=== PATIENT | female | born 1945 ===

== ENCOUNTER 2020-07-22 16:01 | Emergency (ER) | payer MEDICARE ==
[2020-07-22 16:13] VITALS: TEMP 100.3
[2020-07-22] MEDS ORDERED: IBUPROFEN 600 MG TAB PO STA (16:32)
--- NOTE | 2020-07-22 16:47 | ED ---
General Adult HPI - General Source: patient, family, RN notes reviewed, old records reviewed Mode of arrival: ambulatory Limitations: language barrier <Amrik Abraham - Last Filed: 07/22/20 22:50> <Shanna Chapa - Last Filed: 07/24/20 07:46> - General Chief complaint: Weakness Stated complaint: weakness Time Seen by Provider: 07/22/20 16:13 - History of Present Illness Initial comments: 75-year-old female patient to ED for generalized weakness and fever with a mild cough for the last 3 days. Denies any areas of pain. Denies any shortness of breath. Denies any other acute complaints. Systemic: Pt denies fatigue, rash. Pt denies weakness, night sweats, weight loss. Neuro: Pt denies headache, visual disturbances, syncope or pre-syncope. HEENT: Pt denies ocular discharge or irritation, otalgia, rhinorrhea, pharyngitis or notable lymphadenopathy. Cardiopulmonary: Pt denies chest pain, SOB, heart palpitations, dyspnea on exertion. Abdominal/GI: Pt denies abdominal pain, n/v/d. : Denies new onset urinary or bowel incontinence. MSK: Pt denies myalgia, loss of strength or function in extremities. Neuro: Pt denies new onset weakness, paresthesias. (Amrik Abraham) - Related Data Previous Rx's Medication Instructions Recorded Levofloxacin [Levaquin] 750 mg PO DAILY 7 Days tab 07/22/20 Allergies Allergy/AdvReac Type Severity Reaction Status Date / Time No Known Allergies Allergy Verified 07/22/20 16:08 Review of Systems ROS Other: All systems not noted in ROS Statement are negative. <Amrik Abraham - Last Filed: 07/22/20 22:50> ROS Other: All systems not noted in ROS Statement are negative. <Shanna Chapa - Last Filed: 07/24/20 07:46> ROS Statement: Those systems with pertinent positive or pertinent negative responses have been documented in the HPI. Past Medical History Past Medical History: Diabetes Mellitus History of Any Multi-Drug Resistant Organisms: None Reported Past Surgical History: No Surgical Hx Reported Past Psychological History: No Psychological Hx Reported Smoking Status: Never smoker Past Alcohol Use History: None Reported Past Drug Use History: None Reported <Amrik Abraham - Last Filed: 07/22/20 22:50> General Exam Limitations: language barrier <Amrik Abraham - Last Filed: 07/22/20 22:50> - General Exam Comments Initial Comments: Constitutional: NAD, AOX3, Pt has pleasant affect. HEENT: NC/AT, trachea midline, neck supple, no lymphadenopathy. External ears appear normal, without discharge. Mucous membranes moist. Eyes PERRLA, EOM intact. There is no scleral icterus. No pallor noted. Cardiopulmonary: RRR, no murmurs, rubs or gallops, no JVD noted. Lungs CTAB in anterior and posterior [place]. No peripheral edema. Abdominal exam: Abdomen soft and non-distended. Abdomen non-tender to palpation in all 4 quadrants. Bowel sounds active in LLQ. No hepatosplenomegaly. No ecchym osis Neuro: CN II-XII intact. No nuchal rigidity. No raccon eyes, no duval sign, no hemotympanum. No cervical spinal tenderness. MSK: No posterior calf tenderness bilaterally, homans sign negative bilaterally. Posterior tibialis and radial pulse +2 bilaterally. Sensation intact in upper and lower extremities. Full active ROM in upper and lower extremities, 5/5 stregnth. (Amrik Abraham) Course Vital Signs 07/22/20 07/22/20 07/22/20 16:08 16:40 17:00 Temperature 100.3 F H Pulse Rate 124 H 108 H 101 H Respiratory 20 20 20 Rate Blood Pressure 122/74 107/66 107/66 O2 Sat by Pulse 97 95 95 Oximetry 07/22/20 07/22/20 18:00 19:00 Temperature Pulse Rate 98 96 Respiratory 18 18 Rate Blood Pressure 109/72 119/70 O2 Sat by Pulse 96 95 Oximetry Medical Decision Making - Lab Data Result diagrams: 07/22/20 16:29 07/22/20 16:29 - EKG Data -: EKG Interpreted by Me (and Dr. Chapa ) <Amrik Abraham - Last Filed: 07/22/20 22:50> - Lab Data Result diagrams: 07/22/20 16:29 07/22/20 16:29 <Shanna Chapa - Last Filed: 07/24/20 07:46> - Medical Decision Making 75 year old female patient to ED for weakness, fever, cough. Pt VSS do display mild fever. Laboratory investigations reveal mild UTI. x-ray reveals possible pulmonary fibrosis and a coarse infiltrate. Offered admission, she reports she is feeling fine and wants to go home. Son did provide translation. She'll be placed on Levaquin for 1 week and have close patient follow-up with primary care provider and return precautions. Case discussed with Dr. Chapa. (Amrik Abraham) I was available for consultation in the emergency department. The history and physical exam were done by the midlevel provider. I was consulted for this patients care. I reviewed the case with the midlevel provider and based on their presentation of the patient, I agree with the assessment, medical decision making and plan of care as documented. Recommended admission however patient refused. She is alert, lucid and capable of making her own decisions. Chart was dictated using [employer] dictation software. Attempts were made to correct any dictation errors however some typographical errors may persist. Patient seen and evaluated during state of emergency due to Covid-19. (Shanna Chapa) - Lab Data Lab Results 07/22/20 07/22/20 07/22/20 Range/Units 16:29 16:29 16:29 WBC 7.1 (3.8-10.6) k/uL RBC 4.40 (3.80-5.40) m/uL Hgb 13.5 (11.4-16.0) gm/dL Hct 40.3 (34.0-46.0) % MCV 91.7 (80.0-100.0) fL MCH 30.7 (25.0-35.0) pg MCHC 33.5 (31.0-37.0) g/dL RDW 12.4 (11.5-15.5) % Plt Count 243 (150-450) k/uL MPV 7.7 Neutrophils % 75 % Lymphocytes % 18 % Monocytes % 5 % Eosinophils % 1 % Basophils % 1 % Neutrophils # 5.3 (1.3-7.7) k/uL Lymphocytes # 1.3 (1.0-4.8) k/uL Monocytes # 0.4 (0-1.0) k/uL Eosinophils # 0.0 (0-0.7) k/uL Basophils # 0.0 (0-0.2) k/uL Sodium 133 L (137-145) mmol/L Potassium 3.7 (3.5-5.1) mmol/L Chloride 99 (98-107) mmol/L Carbon Dioxide 23 (22-30) mmol/L Anion Gap 11 mmol/L BUN 20 H (7-17) mg/dL Creatinine 1.02 (0.52-1.04) mg/dL Est GFR (CKD-EPI)AfAm 63 (>60 ml/min/1.73 sqM) Est GFR (CKD-EPI)NonAf 55 (>60 ml/min/1.73 sqM) Glucose 66 L (74-99) mg/dL POC Glucose (mg/dL) (75-99) mg/dL POC Glu Network Support Technician ID Plasma Lactic Acid Arthur (0.7-2.0) mmol/L Calcium 9.2 (8.4-10.2) mg/dL Total Bilirubin 0.5 (0.2-1.3) mg/dL AST 29 (14-36) U/L ALT 16 (4-34) U/L Alkaline Phosphatase 79 (38-126) U/L Troponin I (0.000-0.034) ng/mL Total Protein 7.9 (6.3-8.2) g/dL Albumin 4.3 (3.5-5.0) g/dL Urine Color Yellow Urine Appearance Cloudy H (Clear) Urine pH 5.5 (5.0-8.0) Ur Specific [place] 1.039 H (1.001-1.035) Urine Protein 2+ H (Negative) Urine Glucose (UA) Negative (Negative) Urine Ketones Negative (Negative) Urine Blood Negative (Negative) Urine Nitrite Negative (Negative) Urine Bilirubin Negative (Negative) Urine Urobilinogen 2.0 (<2.0) mg/dL Ur Leukocyte Esterase Large H (Negative) Urine RBC 7 H (0-5) /hpf Urine WBC 29 H (0-5) /hpf Ur Squamous Epith Cells 6 H (0-4) /hpf Hyaline Casts 13 H (0-2) /lpf Granular Casts 1 (0) /lpf Urine Mucus Few H (None) /hpf Influenza Type A RNA (Not Detectd) Influenza Type B (PCR) (Not Detectd) 07/22/20 07/22/20 07/22/20 Range/Units 16:29 16:29 16:29 WBC (3.8-10.6) k/uL RBC (3.80-5.40) m/uL Hgb (11.4-16.0) gm/dL Hct (34.0-46.0) % MCV (80.0-100.0) fL MCH (25.0-35.0) pg MCHC (31.0-37.0) g/dL RDW (11.5-15.5) % Plt Count (150-450) k/uL MPV Neutrophils % % Lymphocytes % % Monocytes % % Eosinophils % % Basophils % % Neutrophils # (1.3-7.7) k/uL Lymphocytes # (1.0-4.8) k/uL Monocytes # (0-1.0) k/uL Eosinophils # (0-0.7) k/uL Basophils # (0-0.2) k/uL Sodium (137-145) mmol/L Potassium (3.5-5.1) mmol/L Chloride (98-107) mmol/L Carbon Dioxide (22-30) mmol/L Anion Gap mmol/L BUN (7-17) mg/dL Creatinine (0.52-1.04) mg/dL Est GFR (CKD-EPI)AfAm (>60 ml/min/1.73 sqM) Est GFR (CKD-EPI)NonAf (>60 ml/min/1.73 sqM) Glucose (74-99) mg/dL POC Glucose (mg/dL) (75-99) mg/dL POC Glu Network Support Technician ID Plasma Lactic Acid [place] 1.2 (0.7-2.0) mmol/L Calcium (8.4-10.2) mg/dL Total Bilirubin (0.2-1.3) mg/dL AST (14-36) U/L ALT (4-34) U/L Alkaline Phosphatase (38-126) U/L Troponin I <0.012 (0.000-0.034) ng/mL Total Protein (6.3-8.2) g/dL Albumin (3.5-5.0) g/dL Urine Color Urine Appearance (Clear) Urine pH (5.0-8.0) Ur Specific [place] (1.001-1.035) Urine Protein (Negative) Urine Glucose (UA) (Negative) Urine Ketones (Negative) Urine Blood (Negative) Urine Nitrite (Negative) Urine Bilirubin (Negative) Urine Urobilinogen (<2.0) mg/dL Ur Leukocyte Esterase (Negative) Urine RBC (0-5) /hpf Urine WBC (0-5) /hpf Ur Squamous Epith Cells (0-4) /hpf Hyaline Casts (0-2) /lpf Granular Casts (0) /lpf Urine Mucus (None) /hpf Influenza Type A RNA Not Detected (Not Detectd) Influenza Type B (PCR) Not Detected (Not Detectd) 07/22/20 Range/Units 17:55 WBC (3.8-10.6) k/uL RBC (3.80-5.40) m/uL Hgb (11.4-16.0) gm/dL Hct (34.0-46.0) % MCV (80.0-100.0) fL MCH (25.0-35.0) pg MCHC (31.0-37.0) g/dL RDW (11.5-15.5) % Plt Count (150-450) k/uL MPV Neutrophils % % Lymphocytes % % Monocytes % % Eosinophils % % Basophils % % Neutrophils # (1.3-7.7) k/uL Lymphocytes # (1.0-4.8) k/uL Monocytes # (0-1.0) k/uL Eosinophils # (0-0.7) k/uL Basophils # (0-0.2) k/uL Sodium (137-145) mmol/L Potassium (3.5-5.1) mmol/L Chloride (98-107) mmol/L Carbon Dioxide (22-30) mmol/L Anion Gap mmol/L BUN (7-17) mg/dL Creatinine (0.52-1.04) mg/dL Est GFR (CKD-EPI)AfAm (>60 ml/min/1.73 sqM) Est GFR (CKD-EPI)NonAf (>60 ml/min/1.73 sqM) Glucose (74-99) mg/dL POC Glucose (mg/dL) 84 (75-99) mg/dL POC Glu Network Support Technician ID Mariajose Reyes Plasma Lactic Acid Arthur (0.7-2.0) mmol/L Calcium (8.4-10.2) mg/dL Total Bilirubin (0.2-1.3) mg/dL AST (14-36) U/L ALT (4-34) U/L Alkaline Phosphatase (38-126) U/L Troponin I (0.000-0.034) ng/mL Total Protein (6.3-8.2) g/dL Albumin (3.5-5.0) g/dL Urine Color Urine Appearance (Clear) Urine pH (5.0-8.0) Ur Specific [place] (1.001-1.035) Urine Protein (Negative) Urine Glucose (UA) (Negative) Urine Ketones (Negative) Urine Blood (Negative) Urine Nitrite (Negative) Urine Bilirubin (Negative) Urine Urobilinogen (<2.0) mg/dL Ur Leukocyte Esterase (Negative) Urine RBC (0-5) /hpf Urine WBC (0-5) /hpf Ur Squamous Epith Cells (0-4) /hpf Hyaline Casts (0-2) /lpf Granular Casts (0) /lpf Urine Mucus (None) /hpf Influenza Type A RNA (Not Detectd) Influenza Type B (PCR) (Not Detectd) - EKG Data EKG Comments: ventricular rate 113, RI interval 144, QRS 70, QT/QTC 322/441. Sinus tachycardia, possible inferior infarct age undetermined. No concern for acute ischemia at this time. (Amrik Abraham) Disposition Is patient prescribed a controlled substance at d/c from ED?: No <Amrik Abraham - Last Filed: 07/22/20 22:50> <Shanna Chapa - Last Filed: 07/24/20 07:46> Clinical Impression: UTI (urinary tract infection), Pneumonia Disposition: HOME SELF-CARE Condition: Stable Instructions (If sedation given, give patient instructions): Urinary Tract Infection in Women (ED), Pneumonia (ED) Additional Instructions: Follow up with PCP tomorrow. Take antibiotics as directed. Return to ED with any worsening symptoms. Prescriptions: Levofloxacin [Levaquin] 750 mg PO DAILY 7 Days tab Referrals: Tristan Luis MD [REFERRING] - 1-2 days
[2020-07-22 16:55] LABS: Basophils % (A) 1 %; Eosinophils % (A) 1 %; HCT 40.3 % (34.0-46.0); HGB 13.5 gm/dL (11.4-16.0); Lymphocytes # (A) 1.3 k/uL (1.0-4.8); Lymphocytes % (A) 18 %; MCH 30.7 pg (25.0-35.0); MCHC 33.5 g/dL (31.0-37.0); MCV 91.7 fL (80.0-100.0); Mean Platelet Volume 7.7; Monocytes # (A) 0.4 k/uL (0-1.0); Monocytes % (A) 5 %; Neutrophils # (A) 5.3 k/uL (1.3-7.7); Neutrophils % (A) 75 %; Platelet Count 243 k/uL (150-450); RDW 12.4 % (11.5-15.5); WBC 7.1 k/uL (3.8-10.6)
[2020-07-22] MEDS ORDERED: SODIUM CHLORIDE 0.9% 500 ML 500 ML IV ONE (16:57)
[2020-07-22 17:04] LABS: Albumin 4.3 g/dL (3.5-5.0); Calcium 9.2 mg/dL (8.4-10.2); Potassium 3.7 mmol/L (3.5-5.1); Total Bilirubin 0.5 mg/dL (0.2-1.3); Total Protein 7.9 g/dL (6.3-8.2)
--- NOTE | 2020-07-22 17:18 | XR ---
EXAMINATION TYPE: XR chest 2V DATE OF EXAM: 07/22/2020 COMPARISON: NONE HISTORY: Weakness and cough TECHNIQUE: 2 views FINDINGS: There is some coarse infiltrate in the periphery of the left lung. There is probably some c alcified pleural plaque on the left lateral chest wall. Thoracic aorta is atheromatous. There is no h eart failure. IMPRESSION: Coarse lateral left side pulmonary infiltrate and pleural plaque formation. No heart fail ure seen. There is probably pulmonary interstitial fibrosis.
[2020-07-22 17:56] LABS: Glucose,Whole Blood 84 mg/dL (75-99)
[2020-07-22 18:21] VITALS: RESP 18
[2020-07-22 18:21] LABS: Appearance,Urine Cloudy (Clear); Bilirubin,Urine Negative (Negative); Blood,Urine Negative (Negative); Color,Urine Yellow; Glucose,Urine (UA) Negative (Negative); Granular Casts,Urine 1 /lpf (0); Hyaline Casts,Urine 13 /lpf (0-2); Ketones,Urine Negative (Negative); Leukocyte Esterase,Urine Large (Negative); Mucus,Urine Few /hpf; Nitrite,Urine Negative (Negative); PH, Urine 5.5 (5.0-8.0); Protein,Urine 2+ (Negative); RBC,Urine 7 /hpf (0-5); Specific Gravity,Urine 1.039 (1.001-1.035); Squamous Epithelial Cell,Urine 6 /hpf (0-4); WBC,Urine 29 /hpf (0-5)
[2020-07-22] MEDS ORDERED: cefTRIAXone IN SWFI 1,000 MG/10 ML SYRINGE IVP STA (18:44)
[2020-07-22 19:10] VITALS: BP 119/70; PULSE 96
[2020-07-22] MEDS ORDERED: AZITHROMYCIN 500 MG TAB PO STA (19:25)
[2020-07-22] MEDS ORDERED: LEVOFLOXACIN 750 MG TAB PO STA (19:36)
== END 2020-07-22 19:50 | disposition home or self-care (01) ==
LOC: EC 16:01
DX: U07.1 COVID-19 (principal); J12.89 Other viral pneumonia; N39.0 Urinary tract infection, site not specified
CPT/HCPCS: 99285; 96374; 96361 ×2; 36415; 93005; 80053; 83605; 84484; 85025; 81001; 87040; 87086; 87502; 71046; U0003; J0696

== ENCOUNTER 2020-07-24 14:35 | Emergency (ER) | payer MEDICARE ==
[2020-07-24] MEDS ORDERED: SODIUM CHLORIDE 0.9% 1,000 ML IV STA (15:11)
[2020-07-24] MEDS ORDERED: ONDANSETRON 4 MG/2 ML VIAL IVP STA (15:11)
[2020-07-24] MEDS ORDERED: ACETAMINOPHEN TAB 500 MG TAB PO STA (15:35)
--- NOTE | 2020-07-24 15:38 | ED ---
General Adult HPI - General Chief complaint: Nausea/Vomiting/Diarrhea Stated complaint: Vomiting,Covid Exposure Time Seen by Provider: 07/24/20 14:53 Source: patient Mode of arrival: ambulatory Limitations: language barrier - History of Present Illness Initial comments: Patient is a 75-year-old female presenting to the emergency Department with complaints of nausea and vomiting that started yesterday. Patient speaks very little Haitian, her son is here helping translate. Patient was in the ER 2 days ago and was diagnosed with a UTI as well as pneumonia. Patient also states her just tested positive for Covid. She also did have a Covid test however this is still pending. Prescribed Levaquin which she has been taking, she did take a dose today. Patient states yesterday she started having nausea and had a few episodes of vomiting and then again today. She denies any abdominal pain, no chest pain, no shortness of breath. She has been having a little bit of a fever. She has been able to eat and drink until today, because of the nausea. She denies any diarrhea. She denies having headache, no dizziness. She has no further complaints at this time. Upon arrival to the ER, she was febrile 100, rest of vitals are normal. - Related Data Home Medications Medication Instructions Recorded Confirmed Lisinopril-Hctz 10-12.5 mg 1 tab PO DAILY 07/24/20 07/24/20 [Zestoretic 10-12.5] Lovastatin [Mevacor] 20 mg PO DAILY 07/24/20 07/24/20 glyBURIDE/METFORMIN HCL 1 tab PO AC-BID 07/24/20 07/24/20 [Glucovance 5-500 mg] Previous Rx's Medication Instructions Recorded Levofloxacin [Levaquin] 750 mg PO DAILY 7 Days tab 07/22/20 Ondansetron Odt [Zofran Odt] 4 mg PO Q8HR PRN #10 tab 07/24/20 Allergies Allergy/AdvReac Type Severity Reaction Status Date / Time No Known Allergies Allergy Verified 07/24/20 15:52 Review of Systems ROS Statement: Those systems with pertinent positive or pertinent negative responses have been documented in the HPI. ROS Other: All systems not noted in ROS Statement are negative. Past Medical History Past Medical History: Diabetes Mellitus History of Any Multi-Drug Resistant Organisms: None Reported Past Surgical History: No Surgical Hx Reported Past Psychological History: No Psychological Hx Reported Smoking Status: Never smoker Past Alcohol Use History: None Reported Past Drug Use History: None Reported General Exam - General Exam Comments Initial Comments: GENERAL: Patient is well-developed and well-nourished. Patient is nontoxic and in no acute distress. HEAD: Atraumatic, normocephalic. EYES: Pupils equal round and reactive to light, extraocular movements intact, sclera anicteric, conjunctiva are normal. Eyelids were unremarkable. ENT: TMs normal, nares patent, oropharynx clear without exudates. Moist mucous membranes. NECK: Normal range of motion, supple without lymphadenopathy or JVD. LUNGS: Unlabored respirations. Breath sounds clear to auscultation bilaterally and equal. No wheezes rales or rhonchi. HEART: Regular rate and rhythm without murmurs, rubs or gallops. ABDOMEN: Soft, nontender, normoactive bowel sounds. No guarding, no rebound. No masses appreciated. : Deferred MUSCULOSKELETAL: Normal extremities with adequate strength and normal range of motion, no pitting or edema. No clubbing or cyanosis. NEUROLOGICAL: Patient is alert and oriented x 3. Motor and sensory are also intact. Cranial nerves II through XII grossly intact. Symmetrical smile. Normal speech, normal gait. PSYCH: Normal mood, normal affect. SKIN: Warm, Dry, normal turgor, no rashes or lesions noted. Limitations: language barrier Course Vital Signs 07/24/20 07/24/20 14:38 16:43 Temperature 100 F H 98.0 F Pulse Rate 95 86 Respiratory 18 16 Rate Blood Pressure 129/79 98/63 O2 Sat by Pulse 96 99 Oximetry Medical Decision Making - Medical Decision Making Patient is a 75-year-old female here for nausea and vomiting that started yest erday. She is currently being treated for pneumonia as well as a UTI with Levaquin. She is on day 2. Her is also COVID +, her test is still pending, but presuming she is positive. She did arrive febrile 100, rest of vitals are normal. Her exam is unremarkable, no abdominal pain, her lungs sound clear. Patient looks well, nontoxic. Laboratory shows a normal white count, sodium was a little low at 127, glucose is 52, urine does show improvement from her UTI. Given 1 L of fluids and Zofran and has been resting comfortably in the ER. She said no vomiting episodes, no nausea. Patient states she has not eaten any food today secondary to the nausea but had continued to take her diabetic medication. Patient was given crackers and juice. She reports improvement. She is stable for discharge at this time. I will send her home with Zofran and told her to continue with already prescribed Levaquin. She needs to follow-up with her PCP tomorrow to have labs rechecked. Patient and patient's son are in agreement with this plan of care. Return parameters were discussed with them and they verbalized understanding. Case discussed with Dr. Damian. - Lab Data Result diagrams: 07/24/20 15:35 07/24/20 15:35 Lab Results 07/24/20 07/24/20 07/24/20 Range/Units 15:35 15:35 16:06 WBC 6.6 (3.8-10.6) k/uL RBC 4.03 (3.80-5.40) m/uL Hgb 12.4 (11.4-16.0) gm/dL Hct 36.5 (34.0-46.0) % MCV 90.6 (80.0-100.0) fL MCH 30.8 (25.0-35.0) pg MCHC 34.0 (31.0-37.0) g/dL RDW 11.8 (11.5-15.5) % Plt Count 233 (150-450) k/uL MPV 7.2 Neutrophils % 81 % Lymphocytes % 10 % Monocytes % 6 % Eosinophils % 1 % Basophils % 2 % Neutrophils # 5.3 (1.3-7.7) k/uL Lymphocytes # 0.7 L (1.0-4.8) k/uL Monocytes # 0.4 (0-1.0) k/uL Eosinophils # 0.0 (0-0.7) k/uL Basophils # 0.1 (0-0.2) k/uL Sodium 127 L (137-145) mmol/L Potassium 3.7 (3.5-5.1) mmol/L Chloride 94 L (98-107) mmol/L Carbon Dioxide 25 (22-30) mmol/L Anion Gap 8 mmol/L BUN 13 (7-17) mg/dL Creatinine 0.60 (0.52-1.04) mg/dL Est GFR (CKD-EPI)AfAm >90 (>60 ml/min/1.73 sqM) Est GFR (CKD-EPI)NonAf >90 (>60 ml/min/1.73 sqM) Glucose 52 L (74-99) mg/dL POC Glucose (mg/dL) (75-99) mg/dL POC Glu Physicist [place] ID Calcium 8.6 (8.4-10.2) mg/dL Total Bilirubin 0.5 (0.2-1.3) mg/dL AST 35 (14-36) U/L ALT 15 (4-34) U/L Alkaline Phosphatase 62 (38-126) U/L Total Protein 7.1 (6.3-8.2) g/dL Albumin 3.8 (3.5-5.0) g/dL Urine Color Yellow Urine Appearance Clear (Clear) Urine pH 6.5 (5.0-8.0) Ur Specific [place] 1.026 (1.001-1.035) Urine Protein 2+ H (Negative) Urine Glucose (UA) Negative (Negative) Urine Ketones Negative (Negative) Urine Blood Small H (Negative) Urine Nitrite Negative (Negative) Urine Bilirubin Negative (Negative) Urine Urobilinogen <2.0 (<2.0) mg/dL Ur Leukocyte Esterase Negative (Negative) Urine RBC 1 (0-5) /hpf Urine WBC 3 (0-5) /hpf Ur Squamous Epith Cells 3 (0-4) /hpf Urine Mucus Rare H (None) /hpf 07/24/20 Range/Units 17:11 WBC (3.8-10.6) k/uL RBC (3.80-5.40) m/uL Hgb (11.4-16.0) gm/dL Hct (34.0-46.0) % MCV (80.0-100.0) fL MCH (25.0-35.0) pg MCHC (31.0-37.0) g/dL RDW (11.5-15.5) % Plt Count (150-450) k/uL MPV Neutrophils % % Lymphocytes % % Monocytes % % Eosinophils % % Basophils % % Neutrophils # (1.3-7.7) k/uL Lymphocytes # (1.0-4.8) k/uL Monocytes # (0-1.0) k/uL Eosinophils # (0-0.7) k/uL Basophils # (0-0.2) k/uL Sodium (137-145) mmol/L Potassium (3.5-5.1) mmol/L Chloride (98-107) mmol/L Carbon Dioxide (22-30) mmol/L Anion Gap mmol/L BUN (7-17) mg/dL Creatinine (0.52-1.04) mg/dL Est GFR (CKD-EPI)AfAm (>60 ml/min/1.73 sqM) Est GFR (CKD-EPI)NonAf (>60 ml/min/1.73 sqM) Glucose (74-99) mg/dL POC Glucose (mg/dL) 58 L (75-99) mg/dL POC Glu Physicist [place] ID Lucinda Jerome Calcium (8.4-10.2) mg/dL Total Bilirubin (0.2-1.3) mg/dL AST (14-36) U/L ALT (4-34) U/L Alkaline Phosphatase (38-126) U/L Total Protein (6.3-8.2) g/dL Albumin (3.5-5.0) g/dL Urine Color Urine Appearance (Clear) Urine pH (5.0-8.0) Ur Specific [place] (1.001-1.035) Urine Protein (Negative) Urine Glucose (UA) (Negative) Urine Ketones (Negative) Urine Blood (Negative) Urine Nitrite (Negative) Urine Bilirubin (Negative) Urine Urobilinogen (<2.0) mg/dL Ur Leukocyte Esterase (Negative) Urine RBC (0-5) /hpf Urine WBC (0-5) /hpf Ur Squamous Epith Cells (0-4) /hpf Urine Mucus (None) /hpf Disposition Clinical Impression: Dehydration, Nausea and vomiting Disposition: HOME SELF-CARE Condition: Stable Instructions (If sedation given, give patient instructions): Acute Nausea and Vomiting (ED) Additional Instructions: Please return to the Emergency Department if symptoms worsen or any other concerns. Lab work today shows dehydration, low blood sugar. Make sure to eat dinner after discharge. Follow-up with your PCP tomorrow to recheck blood work. Continue taking the antibiotic as prescribed. Prescriptions: Ondansetron Odt [Zofran Odt] 4 mg PO Q8HR PRN #10 tab PRN Reason: Nausea Is patient prescribed a controlled substance at d/c from ED?: No Referrals: Tristan Luis MD [Primary Care Provider] - 1-2 days
[2020-07-24 15:39] LABS: Basophils # (A) 0.1 k/uL (0-0.2); Basophils % (A) 2 %; Eosinophils % (A) 1 %; HCT 36.5 % (34.0-46.0); HGB 12.4 gm/dL (11.4-16.0); Lymphocytes # (A) 0.7 k/uL (1.0-4.8); Lymphocytes % (A) 10 %; MCH 30.8 pg (25.0-35.0); MCV 90.6 fL (80.0-100.0); Mean Platelet Volume 7.2; Monocytes # (A) 0.4 k/uL (0-1.0); Monocytes % (A) 6 %; Neutrophils # (A) 5.3 k/uL (1.3-7.7); Neutrophils % (A) 81 %; Platelet Count 233 k/uL (150-450); RBC 4.03 m/uL (3.80-5.40); RDW 11.8 % (11.5-15.5); WBC 6.6 k/uL (3.8-10.6)
[2020-07-24 15:50] LABS: ALT 15 U/L (4-34); AST 35 U/L (14-36); African American GFR (CKD) >90 (>60 ml/min/1.73 sqM); Albumin 3.8 g/dL (3.5-5.0); Alkaline Phosphatase 62 U/L (38-126); Anion Gap 8 mmol/L; Blood Urea Nitrogen 13 mg/dL (7-17); Calcium 8.6 mg/dL (8.4-10.2); Carbon Dioxide 25 mmol/L (22-30); Chloride 94 mmol/L (98-107); Glucose 52 mg/dL (74-99); Non-African American GFR(CKD) >90 (>60 ml/min/1.73 sqM); Potassium 3.7 mmol/L (3.5-5.1); Sodium 127 mmol/L (137-145); Total Bilirubin 0.5 mg/dL (0.2-1.3); Total Protein 7.1 g/dL (6.3-8.2)
[2020-07-24 16:31] LABS: Appearance,Urine Clear (Clear); Bilirubin,Urine Negative (Negative); Blood,Urine Small (Negative); Color,Urine Yellow; Glucose,Urine (UA) Negative (Negative); Ketones,Urine Negative (Negative); Leukocyte Esterase,Urine Negative (Negative); Mucus,Urine Rare /hpf; Nitrite,Urine Negative (Negative); PH, Urine 6.5 (5.0-8.0); Protein,Urine 2+ (Negative); RBC,Urine 1 /hpf (0-5); Specific Gravity,Urine 1.026 (1.001-1.035); Squamous Epithelial Cell,Urine 3 /hpf (0-4); Urobilinogen,Urine <2.0 mg/dL (<2.0); WBC,Urine 3 /hpf (0-5)
[2020-07-24 16:44] VITALS: BP 98/63; PULSE 86; RESP 16; TEMP 98
[2020-07-24 17:13] LABS: Glucose,Whole Blood 58 mg/dL (75-99)
== END 2020-07-24 17:51 | disposition home or self-care (01) ==
LOC: EC 14:35
DX: R11.2 Nausea with vomiting, unspecified (principal); E86.0 Dehydration; N39.0 Urinary tract infection, site not specified; J18.9 Pneumonia, unspecified organism; E11.9 Type 2 diabetes mellitus without complications; Z79.84 Long term (current) use of oral hypoglycemic drugs; Z79.899 Other long term (current) drug therapy
CPT/HCPCS: 36415; 80053; 85025; 81001; 99284; 96374; 96361 ×2; J2405

== ENCOUNTER 2020-07-29 12:46 | Inpatient (IN) | payer MEDICARE ==
[2020-07-29] MEDS ORDERED: ONDANSETRON 4 MG/2 ML VIAL IVP STA (13:24)
[2020-07-29] MEDS ORDERED: ACETAMINOPHEN TAB 500 MG TAB PO STA (13:24)
[2020-07-29] MEDS ORDERED: SODIUM CHLORIDE 0.9% 1,000 ML IV STA (13:24)
--- NOTE | 2020-07-29 13:52 | ED ---
Nausea/Vomiting/Diarrhea HPI - General Chief complaint: Nausea/Vomiting/Diarrhea Stated complaint: Vomiting Time Seen by Provider: 07/29/20 13:05 Source: patient Mode of arrival: ambulatory Limitations: no limitations - History of Present Illness Initial comments: Patient is a 75-year-old female presenting to the emergency department with continued nausea, vomiting and now has developed a fever. Patient tested positive for Covid one week ago. She was seen in the ER 5 days ago for nausea and vomiting, she received some fluids and felt improvement. She also completed a course of Levaquin for a mild pneumonia. Patient speaks little Bengali, son i s helping to translate. Son states that she has been feeling better through the week and has been taking the Zofran for the nausea but she ran out and started having vomiting today. They also noticed that she started having a fever today as well. She denies having a cough no shortness of breath or chest pain. She is still having intermittent diarrhea. She denies any dysuria. She did not take any Tylenol or Motrin yet today. She denies having any headache, sore throat, abdominal pain, she states it just feels nauseous and crampy. She has no further complaints at this time. Upon arrival to the ER, her temperature is 100.0, pulse is 103, rest of vitals are normal. - Related Data Home Medications Medication Instructions Recorded Confirmed Lisinopril-Hctz 10-12.5 mg 1 tab PO DAILY 07/24/20 07/24/20 [Zestoretic 10-12.5] Lovastatin [Mevacor] 20 mg PO DAILY 07/24/20 07/24/20 glyBURIDE/METFORMIN HCL 1 tab PO AC-BID 07/24/20 07/24/20 [Glucovance 5-500 mg] Previous Rx's Medication Instructions Recorded Levofloxacin [Levaquin] 750 mg PO DAILY 7 Days tab 07/22/20 Ondansetron Odt [Zofran Odt] 4 mg PO Q8HR PRN #10 tab 07/24/20 Allergies Allergy/AdvReac Type Severity Reaction Status Date / Time No Known Allergies Allergy Verified 07/29/20 13:01 Review of Systems ROS Statement: Those systems with pertinent positive or pertinent negative responses have been documented in the HPI. ROS Other: All systems not noted in ROS Statement are negative. Past Medical History Past Medical History: Diabetes Mellitus History of Any Multi-Drug Resistant Organisms: None Reported Past Surgical History: No Surgical Hx Reported Past Psychological History: No Psychological Hx Reported Smoking Status: Never smoker Past Alcohol Use History: None Reported Past Drug Use History: None Reported General Exam - General Exam Comments Initial Comments: GENERAL: Patient is well-developed and well-nourished. She appears fatigued, dry. HEAD: Atraumatic, normocephalic. EYES: Pupils equal round and reactive to light, extraocular movements intact, sclera anicteric, conjunctiva are normal. Eyelids were unremarkable. ENT: TMs normal, nares patent, oropharynx clear without exudates. Dry mucous m embranes. NECK: Normal range of motion, supple without lymphadenopathy or JVD. LUNGS: Unlabored respirations. Breath sounds clear to auscultation bilaterally and equal. No wheezes rales or rhonchi. HEART: Slighty tachycardia rate and rhythm without murmurs, rubs or gallops. ABDOMEN: Soft, nontender, normoactive bowel sounds. No guarding, no rebound. No masses appreciated. : Deferred MUSCULOSKELETAL: Normal extremities with adequate strength and normal range of motion, no pitting or edema. No clubbing or cyanosis. NEUROLOGICAL: Patient is alert and oriented x 3. Motor and sensory are also intact. Cranial nerves II through XII grossly intact. Symmetrical smile. Normal speech, normal gait. PSYCH: Normal mood, normal affect. SKIN: Warm, Dry, normal turgor, no rashes or lesions noted. Limitations: no limitations Course Vital Signs 07/29/20 07/29/20 12:58 15:01 Temperature 100.0 F H Pulse Rate 103 H 81 Respiratory 18 16 Rate Blood Pressure 124/78 131/79 O2 Sat by Pulse 97 95 Oximetry Medical Decision Making - Medical Decision Making Patient is a 75-year-old female here for nausea, vomiting, diarrhea for the past week. She did test positive for Covid one week ago. She completed a course of Levaquin. She did arrive febrile today, slightly tachycardia. She denies any shortness of breath, chest pain, cough. White count is 13.9, sodium is 128, lactic acid is elevated at 3.2 and CRP is 256, urine shows some mild WBCs, 3+ protein. Chest x-ray shows worsening bilateral infiltrates. Patient was given a liter bolus and will start on maintenance fluids. Patient will be admitted for covid pneumonia, and dehydration. Patient is in agreement with this plan of care. I will start her on Lovenox, give her a dose of Decadron as well. Case discussed with Dr. Damian. Patient accepted by Dr. Melendez. - Lab Data Result diagrams: 07/29/20 13:45 07/29/20 13:45 Lab Results 07/29/20 07/29/20 07/29/20 Range/Units 13:45 13:45 13:45 WBC 13.9 H (3.8-10.6) k/uL RBC 4.35 (3.80-5.40) m/uL Hgb 13.6 (11.4-16.0) gm/dL Hct 39.4 (34.0-46.0) % MCV 90.5 (80.0-100.0) fL MCH 31.3 (25.0-35.0) pg MCHC 34.6 (31.0-37.0) g/dL RDW 11.7 (11.5-15.5) % Plt Count 425 (150-450) k/uL MPV 7.0 Neutrophils % 92 % Lymphocytes % 4 % Monocytes % 3 % Eosinophils % 0 % Basophils % 0 % Neutrophils # 12.7 H (1.3-7.7) k/uL Lymphocytes # 0.6 L (1.0-4.8) k/uL Monocytes # 0.4 (0-1.0) k/uL Eosinophils # 0.0 (0-0.7) k/uL Basophils # 0.1 (0-0.2) k/uL Sodium 128 L (137-145) mmol/L Potassium 3.7 (3.5-5.1) mmol/L Chloride 89 L (98-107) mmol/L Carbon Dioxide 28 (22-30) mmol/L Anion Gap 11 mmol/L BUN 7 (7-17) mg/dL Creatinine 0.63 (0.52-1.04) mg/dL Est GFR (CKD-EPI)AfAm >90 (>60 ml/min/1.73 sqM) Est GFR (CKD-EPI)NonAf 89 (>60 ml/min/1.73 sqM) Glucose 120 H (74-99) mg/dL Plasma Lactic Acid Arthur 3.2 H* (0.7-2.0) mmol/L Calcium 9.2 (8.4-10.2) mg/dL Magnesium 1.8 (1.6-2.3) mg/dL Total Bilirubin 0.7 (0.2-1.3) mg/dL AST 35 (14-36) U/L ALT 18 (4-34) U/L Alkaline Phosphatase 114 (38-126) U/L C-Reactive Protein 256.0 H (<10.0) mg/L Total Protein 7.5 (6.3-8.2) g/dL Albumin 3.9 (3.5-5.0) g/dL Urine Color Urine Appearance (Clear) Urine pH (5.0-8.0) Ur Specific Dalton (1.001-1.035) Urine Protein (Negative) Urine Glucose (UA) (Negative) Urine Ketones (Negative) Urine Blood (Negative) Urine Nitrite (Negative) Urine Bilirubin (Negative) Urine Urobilinogen (<2.0) mg/dL Ur Leukocyte Esterase (Negative) Urine RBC (0-5) /hpf Urine WBC (0-5) /hpf Ur Squamous Epith Cells (0-4) /hpf Amorphous Sediment (None) /hpf Hyaline Casts (0-2) /lpf Urine Mucus (None) /hpf Influenza Type A RNA (Not Detectd) Influenza Type B (PCR) (Not Detectd) 07/29/20 07/29/20 Range/Units 13:45 13:45 WBC (3.8-10.6) k/uL RBC (3.80-5.40) m/uL Hgb (11.4-16.0) gm/dL Hct (34.0-46.0) % MCV (80.0-100.0) fL MCH (25.0-35.0) pg MCHC (31.0-37.0) g/dL RDW (11.5-15.5) % Plt Count (150-450) k/uL MPV Neutrophils % % Lymphocytes % % Monocytes % % Eosinophils % % Basophils % % Neutrophils # (1.3-7.7) k/uL Lymphocytes # (1.0-4.8) k/uL Monocytes # (0-1.0) k/uL Eosinophils # (0-0.7) k/uL Basophils # (0-0.2) k/uL Sodium (137-145) mmol/L Potassium (3.5-5.1) mmol/L Chloride (98-107) mmol/L Carbon Dioxide (22-30) mmol/L Anion Gap mmol/L BUN (7-17) mg/dL Creatinine (0.52-1.04) mg/dL Est GFR (CKD-EPI)AfAm (>60 ml/min/1.73 sqM) Est GFR (CKD-EPI)NonAf (>60 ml/min/1.73 sqM) Glucose (74-99) mg/dL Plasma Lactic Acid Arthur (0.7-2.0) mmol/L Calcium (8.4-10.2) mg/dL Magnesium (1.6-2.3) mg/dL Total Bilirubin (0.2-1.3) mg/dL AST (14-36) U/L ALT (4-34) U/L Alkaline Phosphatase (38-126) U/L C-Reactive Protein (<10.0) mg/L Total Protein (6.3-8.2) g/dL Albumin (3.5-5.0) g/dL Urine Color Yellow Urine Appearance Cloudy H (Clear) Urine pH 6.5 (5.0-8.0) Ur Specific Dalton 1.033 (1.001-1.035) Urine Protein 3+ H (Negative) Urine Glucose (UA) Trace H (Negative) Urine Ketones Trace H (Negative) Urine Blood Small H (Negative) Urine Nitrite Negative (Negative) Urine Bilirubin Negative (Negative) Urine Urobilinogen 2.0 (<2.0) mg/dL Ur Leukocyte Esterase Trace H (Negative) Urine RBC 2 (0-5) /hpf Urine WBC 17 H (0-5) /hpf Ur Squamous Epith Cells 13 H (0-4) /hpf Amorphous Sediment Rare H (None) /hpf Hyaline Casts 22 H (0-2) /lpf Urine Mucus Few H (None) /hpf Influenza Type A RNA Not Detected (Not Detectd) Influenza Type B (PCR) Not Detected (Not Detectd) - EKG Data EKG Comments: Normal sinus rhythm, possible inferior infarct age undetermined, no signs of acute ischemia. Ventricular rate 89, MI interval 144, QT 366. Similar to previous EKG in 07/22/2020. Disposition Clinical Impression: Pneumonia due to COVID-19 virus, Dehydration, Nausea and vomiting Disposition: ADMITTED IP TO THIS HOSP Condition: Stable Is patient prescribed a controlled substance at d/c from ED?: No Decision Date: 07/29/20 Decision Time: 15:04
[2020-07-29 13:57] LABS: Basophils # (A) 0.1 k/uL (0-0.2); Basophils % (A) 0 %; Eosinophils % (A) 0 %; HCT 39.4 % (34.0-46.0); HGB 13.6 gm/dL (11.4-16.0); Lymphocytes # (A) 0.6 k/uL (1.0-4.8); Lymphocytes % (A) 4 %; MCH 31.3 pg (25.0-35.0); MCHC 34.6 g/dL (31.0-37.0); MCV 90.5 fL (80.0-100.0); Monocytes # (A) 0.4 k/uL (0-1.0); Monocytes % (A) 3 %; Neutrophils # (A) 12.7 k/uL (1.3-7.7); Neutrophils % (A) 92 %; Platelet Count 425 k/uL (150-450); RBC 4.35 m/uL (3.80-5.40); RDW 11.7 % (11.5-15.5); WBC 13.9 k/uL (3.8-10.6)
[2020-07-29 14:04] LABS: Amorphous Sediment,Urine Rare /hpf; Appearance,Urine Cloudy (Clear); Bilirubin,Urine Negative (Negative); Blood,Urine Small (Negative); Color,Urine Yellow; Glucose,Urine (UA) Trace (Negative); Hyaline Casts,Urine 22 /lpf (0-2); Ketones,Urine Trace (Negative); Leukocyte Esterase,Urine Trace (Negative); Mucus,Urine Few /hpf; Nitrite,Urine Negative (Negative); PH, Urine 6.5 (5.0-8.0); Protein,Urine 3+ (Negative); RBC,Urine 2 /hpf (0-5); Specific Gravity,Urine 1.033 (1.001-1.035); Squamous Epithelial Cell,Urine 13 /hpf (0-4); WBC,Urine 17 /hpf (0-5)
[2020-07-29 14:09] LABS: ALT 18 U/L (4-34); AST 35 U/L (14-36); African American GFR (CKD) >90 (>60 ml/min/1.73 sqM); Albumin 3.9 g/dL (3.5-5.0); Alkaline Phosphatase 114 U/L (38-126); Anion Gap 11 mmol/L; Blood Urea Nitrogen 7 mg/dL (7-17); Calcium 9.2 mg/dL (8.4-10.2); Carbon Dioxide 28 mmol/L (22-30); Chloride 89 mmol/L (98-107); Glucose 120 mg/dL (74-99); Magnesium 1.8 mg/dL (1.6-2.3); Non-African American GFR(CKD) 89 (>60 ml/min/1.73 sqM); Potassium 3.7 mmol/L (3.5-5.1); Sodium 128 mmol/L (137-145); Total Bilirubin 0.7 mg/dL (0.2-1.3); Total Protein 7.5 g/dL (6.3-8.2)
--- NOTE | 2020-07-29 14:12 | XR ---
EXAMINATION TYPE: XR chest 2V DATE OF EXAM: 07/29/2020 COMPARISON: 07/22/2020. HISTORY: Fever. TECHNIQUE: Frontal and lateral views of the chest are obtained. FINDINGS: There is progression of bilateral diffuse peripheral base, patchy opacities, now moderate to marked. No significant pleural effusion, or pneumothorax seen. The cardiac silhouette size is wit hin normal limits. The osseous structures are intact. IMPRESSION: Progression of bilateral infiltrates.
[2020-07-29] MEDS ORDERED: PNEUMONIA PROTOCOL UTILIZED 1 EACH MISC PO PRN (14:59)
[2020-07-29] MEDS ORDERED: dexAMETHasone 2 MG TAB PO STA (15:03)
[2020-07-29] MEDS: SODIUM CHLORIDE 0.9% 1,000 ML IV SCH (15:23)
[2020-07-29] MEDS: ENOXAPARIN 40 MG/0.4 ML SYRINGE SQ SCH (15:25)
[2020-07-30] MEDS: SODIUM CHLORIDE 0.9% 1,000 ML IV SCH ×2 (05:29→17:44)
[2020-07-30] MEDS: ASCORBIC ACID 500 MG TAB PO SCH (10:12)
[2020-07-30] MEDS: CHOLECALCIFEROL 1,000 UNIT TAB PO SCH (10:12)
[2020-07-30] MEDS: ZINC SULFATE 220 MG CAP PO SCH (10:13)
[2020-07-30 10:17] LABS: C Reactive Protein 201.1 mg/L (<10.0)
[2020-07-30] MEDS ORDERED: ACETAMINOPHEN TAB 325 MG TAB PO PRN (12:07)
[2020-07-30] MEDS ORDERED: ONDANSETRON 4 MG/2 ML VIAL IVP PRN (12:07)
--- NOTE | 2020-07-30 12:18 | P.HPIM ---
History of Present Illness H&P Date: 07/30/20 HISTORY OF PRESENT ILLNESS This is a 75-year-old female patient of Dr. Kai Knott with past medical history of hypertension, hyperlipidemia, diabetes mellitus type 2. She initially presented to [facility] emergency center on July 22 for generalized weakness and fever and cough for 3 days. She was diagnosed with UTI and pneumonia and discharged on Levaquin for 7 day course. She had: 19 testing at that time which was not back at the time of discharge. Patient returned on July 24 with complaints of nausea and vomiting and was di scharged home on Zofran. Patient apparently ran out of Zofran yesterday and presented again to [facility] emergency center with nausea, vomiting and fever. She denies having any cough, shortness of breath or chest pain. She is still having intermittent diarrhea. No abdominal pain. Patient presented to [facility] emergency center, temperature max 100.0, heart rate 69, blood pressure 116/67, pulse ox 94% on room air. This morning pulse ox is 90% on room air. WBC 13.9, sodium 128, potassium 3.7, creatinine 0.63. C-reactive protein 256. Urinalysis cloudy, blood small, WBCs 17, squamous cells 13.Influenza A and B negative on July 29 and July 22. Chest x-ray done yesterday reveals progression of bilateral infiltrates. Patient was admitted to the MedSurg floor, started on IV fluids, Lovenox, dexamethasone, vitamin D, vitamin C, zinc. Consult dated for pulmonary medicine. Patient has history of smoking. Information is limited from the patient due to limited Latvian. REVIEW OF SYSTEMS Constitutional: Reports fever, Reports chills, Reports night sweats. No weight change. Reports weakness, Reportsfatigue Reports lethargy. Reports daytime sleepiness. EENT: No headache. No blurred vision or double vision, no loss of vision. No loss of Hearing, no ringing in the ears, no dizziness. No nasal drainage or congestion. No epistaxis. No sore throat. Lungs: No shortness of breath, cough, no sputum production. No wheezing. Cardiovascular: No chest pain, no lower extremity edema. No palpitations. No paroxysmal nocturnal dyspnea. No orthopnea. No lightheadedness or dizziness. No syncopal episodes. Abdominal: Reports abdominal pain. Reports nausea, Reportsvomiting. Reports diarrhea. No constipation. No bloody or tarry stools.Reports loss of appetite. Genitourinary: No dysuria, increased frequency, urgency. Musculoskeletal: No myalgias. No muscle weakness, no gait dysfunction, no frequent falls. Integumentary: No wounds, no lesions. No rash or pruritus. Neurologic: No aphasia. No facial droop. No change in mentation. No head injury. No headache. No paralysis. No paresthesia. Psychiatric: No depression. No anxiety. Endocrine: No abnormal blood sugars. PHYSICAL EXAMINATION Gen: This is a 75-year-old female. She is resting in bed and appears to be com fortable and in no acute distress. No respiratory distress is noted. HEENT: Head is atraumatic, normocephalic. Pupils equal, round. Sclerae is anicteric. NECK: Supple. No JVD. No lymphadenopathy. No thyromegaly. LUNGS: Clear to auscultation. No wheezes or rhonchi. No intercostal retractions. HEART: Regular rate and rhythm. No murmur. ABDOMEN: Soft. Bowel sounds are present. No masses. No tenderness. EXTREMITIES: No pedal edema. No calf tenderness. NEUROLOGICAL: Patient is awake, alert and oriented x3. Cranial nerves 2 through 12 are grossly intact. ASSESSMENT AND PLAN 1. Covid 19 pneumonia. Continue dexamethasone 6 mg IV daily, Lovenox 40 mg daily, zinc, vitamin C, vitamin D, consult with pulmonary medicine. Repeat chest x-ray today, blood culture, sputum culture. 2. Intractable nausea and vomiting. Continue Zofran 4 mg IV every 6 hours as needed, IV fluids or 0.9 normal saline at 75 mL per hour. 3. Dehydration with hyponatremia. Continue IV fluids. 4. Hypertension. Hold hydrochlorothiazide, resume lisinopril 10 mg daily with parameters. 5. Hyperlipidemia. Continue lovastatin 20 mg at bedtime. 6. Diabetes mellitus type 2, uncontrolled with hypoglycemia. Hold glyburide and metformin. NovoLog scale only for now. Hemoglobin A1c. 7. GI prophylaxis. Protonix. 8. DVT prophylaxis. Lovenox. Patient will be admitted to the hospital for a minimum of 2 night stay. DISCHARGE PLAN Most likely return home. Impression and plan of care have been directed as dictated by the signing physician. Viviana López nurse practitioner acting as scribe for signing physician. Past Medical History Past Medical History: Diabetes Mellitus History of Any Multi-Drug Resistant Organisms: None Reported Past Surgical History: No Surgical Hx Reported Past Psychological History: No Psychological Hx Reported Smoking Status: Never smoker Past Alcohol Use History: None Reported Past Drug Use History: None Reported Medications and Allergies Home Medications Medication Instructions Recorded Confirmed Type Lisinopril-Hctz 10-12.5 mg 1 tab PO HS 07/24/20 07/29/20 History [Zestoretic 10-12.5] Lovastatin [Mevacor] 20 mg PO HS 07/24/20 07/29/20 History glyBURIDE/METFORMIN HCL 1 tab PO AC-BID 07/24/20 07/29/20 History [Glucovance 5-500 mg] Allergies Allergy/AdvReac Type Severity Reaction Status Date / Time No Known Allergies Allergy Verified 07/29/20 15:44 Physical Exam Vitals: Vital Signs Temp Pulse Pulse Resp BP BP Pulse Ox 07/30/20 03:44 98.9 F 69 18 112/69 91 L 07/29/20 22:55 98.4 F 69 18 116/67 94 L 07/29/20 18:24 98.5 F 86 20 138/100 93 L 07/29/20 15:01 81 16 131/79 95 07/29/20 12:58 100.0 F H 103 H 18 124/78 97 Intake and Output 07/29/20 07/30/20 07/30/20 22:59 06:59 14:59 Intake Total 475 Balance 475 Intake: Intake, IV Titration 475 Amount Sodium Chloride 0.9% 1, 475 000 ml @ 75 mls/hr IV . [id number] [facility] Rx#:[id number] Other: # Voids 1 Weight 65.771 kg Results CBC & Chem 7: 07/29/20 13:45 07/29/20 13:45 Labs: Abnormal Lab Results - Last 24 Hours (Table) 07/29/20 07/29/20 07/29/20 Range/Units 13:45 13:45 13:45 WBC 13.9 H (3.8-10.6) k/uL Neutrophils # 12.7 H (1.3-7.7) k/uL Lymphocytes # 0.6 L (1.0-4.8) k/uL Sodium 128 L (137-145) mmol/L Chloride 89 L (98-107) mmol/L Glucose 120 H (74-99) mg/dL Plasma Lactic Acid Arthur 3.2 H* (0.7-2.0) mmol/L C-Reactive Protein 256.0 H (<10.0) mg/L Urine Appearance (Clear) Urine Protein (Negative) Urine Glucose (UA) (Negative) Urine Ketones (Negative) Urine Blood (Negative) Ur Leukocyte Esterase (Negative) Urine WBC (0-5) /hpf Ur Squamous Epith Cells (0-4) /hpf Amorphous Sediment (None) /hpf Hyaline Casts (0-2) /lpf Urine Mucus (None) /hpf 07/29/20 Range/Units 13:45 WBC (3.8-10.6) k/uL Neutrophils # (1.3-7.7) k/uL Lymphocytes # (1.0-4.8) k/uL Sodium (137-145) mmol/L Chloride (98-107) mmol/L Glucose (74-99) mg/dL Plasma Lactic Acid Arthur (0.7-2.0) mmol/L C-Reactive Protein (<10.0) mg/L Urine Appearance Cloudy H (Clear) Urine Protein 3+ H (Negative) Urine Glucose (UA) Trace H (Negative) Urine Ketones Trace H (Negative) Urine Blood Small H (Negative) Ur Leukocyte Esterase Trace H (Negative) Urine WBC 17 H (0-5) /hpf Ur Squamous Epith Cells 13 H (0-4) /hpf Amorphous Sediment Rare H (None) /hpf Hyaline Casts 22 H (0-2) /lpf Urine Mucus Few H (None) /hpf Microbiology - Last 24 Hours (Table) 07/29/20 13:45 Urine Culture - Preliminary Urine,Voided Thrombosis Risk Factor Assmnt - Choose All That Apply Any of the Below Risk Factors Present?: No Other Risk Factors: No Each Risk Factor Represents 2 Points: Age 61-74 years Other congenital or acquired thrombophilia - If yes, enter type in comment: No Thrombosis Risk Factor Assessment Total Risk Factor Score: 2 Thrombosis Risk Factor Assessment Level: Very Low Risk
[2020-07-30] MEDS: INSULIN ASPART (NovoLOG) 100 UNIT/ML VIAL SQ SCH ×3 (12:35→20:18)
--- NOTE | 2020-07-30 12:37 | XR ---
EXAMINATION TYPE: XR chest 1V DATE OF EXAM: 07/30/2020 CLINICAL HISTORY: pneumonia. TECHNIQUE: Portable frontal view of the chest. COMPARISON: 07/29/2020 chest radiograph FINDINGS: Low lung volumes accentuates the cardiac mediastinal silhouette and lung markings. There a re diffuse bilateral peripheral bandlike airspace opacities of the lungs, which are similar to 2 07/09 given differences in lung volume. No pneumothorax. No pleural effusion. IMPRESSION: Bilateral peripheral bandlike airspace opacities characteristic for Covid 19 viral infec tion. Findings are similar to 07/29/2020 and increased from 07/22/2020.
[2020-07-30] MEDS ORDERED: REMDESIVIR (EUA) 200 MG in SODIUM CHLORIDE 0.9% 250 ML IVPB ONE (14:00)
--- NOTE | 2020-07-30 14:41 | P.CNPUL ---
History of Present Illness Consult date: 07/30/20 Requesting physician: Ever Nieto Reason for consult: other Chief complaint: Nausea, vomiting and diarrhea History of present illness: This is a 75-year-old female patient of Dr. Kai Knott, with past medical history of diabetes mellitus, who presented to the emergency department on 07/29/2024 evaluation of continuous nausea, vomiting and diarrhea, and patient also developed a fever. Patient is a positive for COVID 19 1 week ago. She was seen in the emergency department for nausea and vomiting. She received some IV hydration felt improvement, she has also abated a course of Levaquin for a mild pneumonia. Patient is a poor historian related to language barrier, we think her primary language is Jamaican. Most the history was obtained from the chart. Patient was taken Zofran for nausea and vomiting, and felt some improvement last week however she ran out of Zofran and started vomiting again. Patient denied having any cough, shortness of breath or chest pain. She was having intermittent diarrhea, denied any dysuria. Denied any headaches, sore throat, no abdominal pain, just feeling nauseous and crampy. She was febrile on presentation to temp of 100F. Pulse ox was 97% on room air. Chest x-ray showing progression of bilateral infiltrates compared x completed on 07/22/2020. Lab work showed mild leukocytosis, with white blood cell count of 13.9, lymphopenia with the lymphocyte count of 0.6, sodium was 128, potassium 3.7, chloride was 89, renal profile was unremarkable, plasma lactic acid was mildly elevated at 3.2, LFTs were within normal limits. LDH was 750, CRP was 256, down to 201 on today's labs, urinalysis showed 3+ protein, trace ketones, small amount of blood, increased leukocytes and possibility of urinary tract infection, influenza screen was negative. Patient was given a liter bolus in the emergency department, lactic acid has improved, and she continues on IV hydration with 0.9 normal saline at a rate of 75 ML per hour, she is on prophylactic dose of Lovenox, oral dexamethasone, and we will add Remdesivir to her regimen Review of Systems All systems: negative Constitutional: Denies chills, Denies fever Eyes: denies blurred vision, denies pain Ears, nose, mouth and throat: Denies headache, Denies sore throat Cardiovascular: Denies chest pain, Denies shortness of breath Respiratory: Denies cough Gastrointestinal: Reports diarrhea, Reports nausea, Reports vomiting, Denies abdominal pain Genitourinary: Denies dysuria, Denies hematuria Musculoskeletal: Denies myalgias Integumentary: Denies pruritus, Denies rash Neurological: Denies numbness, Denies weakness Psychiatric: Denies anxiety, Denies depression Endocrine: Denies fatigue, Denies weight change Past Medical History Past Medical History: Diabetes Mellitus History of Any Multi-Drug Resistant Organisms: None Reported Past Surgical History: No Surgical Hx Reported Past Psychological History: No Psychological Hx Reported Smoking Status: Never smoker Past Alcohol Use History: None Reported Past Drug Use History: None Reported Medications and Allergies Home Medications Medication Instructions Recorded Confirmed Type Lisinopril-Hctz 10-12.5 mg 1 tab PO HS 07/24/20 07/29/20 History [Zestoretic 10-12.5] Lovastatin [Mevacor] 20 mg PO HS 07/24/20 07/29/20 History glyBURIDE/METFORMIN HCL 1 tab PO AC-BID 07/24/20 07/29/20 History [Glucovance 5-500 mg] Allergies Allergy/AdvReac Type Severity Reaction Status Date / Time No Known Allergies Allergy Verified 07/29/20 15:44 Physical Exam Vitals: Vital Signs Temp Pulse Pulse Resp BP BP Pulse Ox 07/30/20 07:00 98.3 F 67 17 118/64 90 L 07/30/20 03:44 98.9 F 69 18 112/69 91 L 07/29/20 22:55 98.4 F 69 18 116/67 94 L 07/29/20 18:24 98.5 F 86 20 138/100 93 L 07/29/20 15:01 81 16 131/79 95 Intake and Output 07/29/20 07/30/20 07/30/20 22:59 06:59 14:59 Intake Total 475 Balance 475 Intake: Intake, IV Titration 475 Amount Sodium Chloride 0.9% 1, 475 000 ml @ 75 mls/hr IV . [id number] [facility] Rx#:[id number] Other: Voiding Method Toilet # Voids 1 Weight 65.771 kg GENERAL EXAM: Alert, very pleasant, 75-year-old female, on room air, with a pulse ox of 94%, comfortable in no apparent distress. HEAD: Normocephalic/atraumatic. EYES: Normal reaction of pupils, equal size. Conjunctiva pink, sclera white. NOSE: Clear with pink turbinates. THROAT: No erythema or exudates. NECK: No masses, no JVD, no thyroid enlargement, no adenopathy. CHEST: No chest wall deformity. Symmetrical expansion. LUNGS: Equal air entry with no crackles, wheeze, rhonchi or dullness. CVS: Regular rate and rhythm, normal S1 and S2, no gallops, no murmurs, no rubs ABDOMEN: Soft, nontender. No hepatosplenomegaly, normal bowel sounds, no guarding or rigidity. EXTREMITIES: No clubbing, no edema, no cyanosis, 2+ pulses and upper and lower extremities. MUSCULOSKELETAL: Muscle strength and tone normal. SPINE: No scoliosis or deformity SKIN: No rashes CENTRAL NERVOUS SYSTEM: Alert and oriented -3. No focal deficits, tone is normal in all 4 extremities. PSYCHIATRIC: Alert and oriented -3. Appropriate affect. Intact judgment and insight. Results - Laboratory Findings CBC and BMP: 07/29/20 13:45 07/29/20 13:45 Abnormal lab findings: Abnormal Labs 07/29/20 07/29/20 07/29/20 13:45 13:45 13:45 WBC 13.9 H Neutrophils # 12.7 H Lymphocytes # 0.6 L Sodium 128 L Chloride 89 L Glucose 120 H Plasma Lactic Acid Arthur 3.2 H* Lactate Dehydrogenase C-Reactive Protein 256.0 H Urine Appearance Urine Protein Urine Glucose (UA) Urine Ketones Urine Blood Ur Leukocyte Esterase Urine WBC Ur Squamous Epith Cells Amorphous Sediment Hyaline Casts Urine Mucus 07/29/20 07/30/20 13:45 08:24 WBC Neutrophils # Lymphocytes # Sodium Chloride Glucose Plasma Lactic Acid Arthur Lactate Dehydrogenase 750 H C-Reactive Protein 201.1 H Urine Appearance Cloudy H Urine Protein 3+ H Urine Glucose (UA) Trace H Urine Ketones Trace H Urine Blood Small H Ur Leukocyte Esterase Trace H Urine WBC 17 H Ur Squamous Epith Cells 13 H Amorphous Sediment Rare H Hyaline Casts 22 H Urine Mucus Few H - Diagnostic Findings Chest x-ray: report reviewed, image reviewed Additional studies: EKG reviewed Assessment and Plan Plan: Assessment: #1. Acute COVID 19 pneumonitis #2. Nausea, vomiting, diarrhea related to acute COVID 19 infection #3. Hyponatremia, likely hypovolemic of related to protracted nausea vomiting and diarrhea #4. Mild lactic acidosis, improved with IV hydration #5. Possible urinary tract infection #6. Diabetes mellitus type 2 #7. Increased inflammatory markers related to acute COVID 19 infection Plan: We'll send procalcitonin level, urine culture, continue with Decadron, continue vitamin C, zinc supplement, prophylactic dose of Lovenox, will add Remdesivir treatment, continue monitoring dyspnea, fever, oxygenation pattern, continue to follow I performed a history & physical examination of the patient and discussed their management with my nurse practitioner, Lila Campbell. I reviewed the nurse practitioner's note and agree with the documented findings and plan of care. Lung sounds are positive for bibasilar crackles. The findings and the impression was discussed with the patient. I attest to the documentation by the nurse practitioner. Time with Patient: Greater than 30
[2020-07-30] MEDS: DEXAMETHASONE SOD PHOSPHATE 10 MG/ML 1 ML VIAL IV SCH (15:27)
[2020-07-30 17:29] LABS: Glucose,Whole Blood 197 mg/dL (75-99)
[2020-07-30] MEDS: ENOXAPARIN 40 MG/0.4 ML SYRINGE SQ SCH (17:43)
[2020-07-30 18:32] LABS: Ferritin 464.1 ng/mL (10.0-291.0)
[2020-07-30 19:27] LABS: Glucose,Whole Blood 247 mg/dL (75-99)
[2020-07-30] MEDS: ATORVASTATIN 10 MG TAB PO SCH (20:18)
[2020-07-31 06:39] LABS: Basophils # (A) 0.1 k/uL (0-0.2); Basophils % (A) 1 %; Eosinophils # (A) 0.1 k/uL (0-0.7); Eosinophils % (A) 1 %; HCT 33.9 % (34.0-46.0); HGB 11.4 gm/dL (11.4-16.0); Lymphocytes # (A) 0.8 k/uL (1.0-4.8); Lymphocytes % (A) 10 %; MCHC 33.7 g/dL (31.0-37.0); Mean Platelet Volume 6.6; Monocytes # (A) 0.4 k/uL (0-1.0); Monocytes % (A) 5 %; Neutrophils # (A) 6.5 k/uL (1.3-7.7); Neutrophils % (A) 82 %; Platelet Count 363 k/uL (150-450); RBC 3.68 m/uL (3.80-5.40); RDW 11.8 % (11.5-15.5); WBC 7.8 k/uL (3.8-10.6)
[2020-07-31 07:08] LABS: Glucose,Whole Blood 101 mg/dL (75-99)
[2020-07-31] MEDS: INSULIN ASPART (NovoLOG) 100 UNIT/ML VIAL SQ SCH ×4 (07:29→20:13)
[2020-07-31] MEDS: ZINC SULFATE 220 MG CAP PO SCH (09:40)
[2020-07-31] MEDS: CHOLECALCIFEROL 1,000 UNIT TAB PO SCH (09:40)
[2020-07-31] MEDS: PANTOPRAZOLE 40 MG TABLET PO SCH (09:40)
[2020-07-31] MEDS: ASCORBIC ACID 500 MG TAB PO SCH (09:40)
[2020-07-31] MEDS: DEXAMETHASONE SOD PHOSPHATE 10 MG/ML 1 ML VIAL IV SCH (09:40)
[2020-07-31 10:32] LABS: African American GFR (CKD) 98.9 (60.0-200.0); Albumin 3.2 g/dL (3.80-4.90); Albumin/Globulin Ratio 1.39 (1.60-3.17); BUN/Creat Ratio 21.43 Ratio (12.00-20.00); C Reactive Protein 9.2 mg/dL (0.0-0.8); Calcium 8.4 mg/dL (8.7-10.3); Ferritin 398.1 ng/mL (10.0-291.0); Globulin 2.3 g/dL (1.6-3.3); Non-African American GFR(CKD) 85.4 (60.0-200.0); Potassium 4.3 mmol/L (3.5-5.5); Total Bilirubin 0.4 mg/dL (0.3-1.2); Total Protein 5.5 g/dL (6.2-8.2)
--- NOTE | 2020-07-31 11:18 | P.PN ---
Subjective Progress Note Date: 07/31/20 HISTORY OF PRESENT ILLNESS This is a 75-year-old female patient of Dr. Kai Knott with past medical history of hypertension, hyperlipidemia, diabetes mellitus type 2. She initially presented to [facility] emergency center on July 22 for generalized weakness and fever and cough for 3 days. She was diagnosed with UTI and pneumonia and discharged on Levaquin for 7 day course. She had: 19 testing at that time which was not back at the time of discharge. Patient returned on July 24 with complaints of nausea and vomiting and was discharg ed home on Zofran. Patient apparently ran out of Zofran yesterday and presented again to [facility] emergency center with nausea, vomiting and fever. She denies having any cough, shortness of breath or chest pain. She is still having intermittent diarrhea. No abdominal pain. Patient presented to [facility] emergency center, temperature max 100.0, heart rate 69, blood pressure 116/67, pulse ox 94% on room air. This morning pulse ox is 90% on room air. WBC 13.9, sodium 128, potassium 3.7, creatinine 0.63. C- reactive protein 256. Urinalysis cloudy, blood small, WBCs 17, squamous cells 13.Influenza A and B negative on July 29 and July 22. Chest x-ray done yesterday reveals progression of bilateral infiltrates. Patient was admitted to the MedSurg floor, started on IV fluids, Lovenox, dexamethasone, vitamin D, vitamin C, zinc. Consult dated for pulmonary medicine. Patient has history of smoking. Information is limited from the patient due to limited Persian. 07/31: Patient does not have any abdominal pain. No nausea no vomiting no olamide rrhea. She is walking to the bathroom and does not require oxygen. telehealth case manager has been in normal sinus rhythm. She was seen yesterday by phone or medicine and started on Remdesivir. She is on day #2/5 of Remdesivir. Repeat blood work reveals WBC 7.8, hemoglobin 11.4, lymphocytes 0.8. Ferritin improved at 398, LDH improved at 296, C-reactive protein down to 9.2. Afebrile, heart rate 68, blood pressure 126/67 pulse ox 93% on room air. Patient appears to be quite stable and appropriate for discharge. We'll plan for discharge home today if cleared by pulmonary medicine. REVIEW OF SYSTEMS Constitutional: Denies fever, Denies chills, Denies night sweats. No weight change. Denies weakness, denies daytime sleepiness. EENT: No headache. No blurred vision or double vision, no loss of vision. No loss of Hearing, no ringing in the ears, no dizziness. No nasal drainage or congestion. No epistaxis. No sore throat. Lungs: No shortness of breath, cough, no sputum production. No wheezing. Cardiovascular: No chest pain, no lower extremity edema. No palpitations. No paroxysmal nocturnal dyspnea. No orthopnea. No lightheadedness or dizziness. No syncopal episodes. Abdominal: Denies abdominal pain. Denies nausea, Denies vomiting. Denies diarrhea. No constipation. No bloody or tarry stools. Denies loss of appetite. Genitourinary: No dysuria, increased frequency, urgency. Musculoskeletal: No myalgias. No muscle weakness, no gait dysfunction, no frequent falls. Integumentary: No wounds, no lesions. No rash or pruritus. Neurologic: No aphasia. No facial droop. No change in mentation. No head injury. No headache. No paralysis. No paresthesia. Psychiatric: No depression. No anxiety. Endocrine: No abnormal blood sugars. PHYSICAL EXAMINATION Gen: This is a 75-year-old female. She is resting in bed and appears to be comfortable and in no acute distress. No respiratory distress is noted. HEENT: Head is atraumatic, normocephalic. Pupils equal, round. Sclerae is anicteric. NECK: Supple. No JVD. No lymphadenopathy. No thyromegaly. LUNGS: Clear to auscultation. No wheezes or rhonchi. No intercostal retractions. No accessory muscle usage. HEART: Regular rate and rhythm. No murmur. ABDOMEN: Soft. Bowel sounds are present. No masses. No tenderness. EXTREMITIES: No pedal edema. No calf tenderness. NEUROLOGICAL: Patient is awake, alert and oriented x3. Cranial nerves 2 through 12 are grossly intact. ASSESSMENT AND PLAN 1. Covid 19 pneumonia. Continue dexamethasone 6 mg IV daily, Lovenox 40 mg daily, zinc, vitamin C, vitamin D, consult with pulmonary medicine. Repeat chest x-ray today, blood culture, sputum culture. Patient has been started on Remdesivir. 2. Intractable nausea and vomiting. Continue Zofran 4 mg IV every 6 hours as needed, IV fluids or 0.9 normal saline at 75 mL per hour. 3. Dehydration with hyponatremia. Continue IV fluids. 4. Hypertension. Hold hydrochlorothiazide, resume lisinopril 10 mg daily with parameters. 5. Hyperlipidemia. Continue lovastatin 20 mg at bedtime. 6. Diabetes mellitus type 2, uncontrolled with hypoglycemia. Hold glyburide and metformin. NovoLog scale only for now. Hemoglobin A1c. 7. GI prophylaxis. Protonix. 8. DVT prophylaxis. Lovenox. DISCHARGE PLAN Most likely return home. Impression and plan of care have been directed as dictated by the signing physician. Viviana López nurse practitioner acting as scribe for signing physician. Objective - Vital Signs Vital signs: Vital Signs Temp 98.4 F 07/31/20 04:44 Pulse 68 07/31/20 04:44 Resp 20 07/31/20 04:44 BP 126/67 07/31/20 04:44 Pulse Ox 93 L 07/31/20 04:44 Intake & Output 07/30/20 07/31/20 07/31/20 18:59 06:59 18:59 Intake Total 600 300 Balance 600 300 Intake: Intake, IV Titration 600 Amount Sodium Chloride 0.9% 1, 600 000 ml @ 75 mls/hr IV . [id number] [facility] Rx#:[id number] Oral 300 Other: Voiding Method Toilet Toilet - Labs CBC & Chem 7: 07/31/20 06:19 07/31/20 06:19 Labs: Abnormal Lab Results - Last 24 Hours (Table) 07/30/20 07/30/20 07/30/20 Range/Units 08:24 08:24 17:28 RBC (3.80-5.40) m/uL Hct (34.0-46.0) % Lymphocytes # (1.0-4.8) k/uL POC Glucose (mg/dL) 197 H (75-99) mg/dL Ferritin 464.1 H (10.0-291.0) ng/mL Lactate Dehydrogenase 750 H (313-618) U/L C-Reactive Protein 201.1 H (<10.0) mg/L Procalcitonin 0.18 H (0.02-0.09) ng/mL 07/30/20 07/31/20 07/31/20 Range/Units 19:26 06:19 07:05 RBC 3.68 L (3.80-5.40) m/uL Hct 33.9 L (34.0-46.0) % Lymphocytes # 0.8 L (1.0-4.8) k/uL POC Glucose (mg/dL) 247 H 101 H (75-99) mg/dL Ferritin (10.0-291.0) ng/mL Lactate Dehydrogenase (313-618) U/L C-Reactive Protein (<10.0) mg/L Procalcitonin (0.02-0.09) ng/mL Microbiology - Last 24 Hours (Table) 07/29/20 13:45 Urine Culture - Final Urine,Voided Carolynn albicans 07/29/20 13:45 Blood Culture - Preliminary Blood No Growth after 24 hours
--- NOTE | 2020-07-31 11:18 | P.DS ---
Providers Date of admission: 07/29/20 14:52 Expected date of discharge: 07/31/20 Attending physician: Nicol Melendez Consults: 07/30/20 07:58 Consult Physician Routine Consulting Provider: Elian Nelson Consult Reason/Comments: covid Do you want consulting provider notified?: Yes Primary care physician: Kai Knott [facility] Course: HISTORY OF PRESENT ILLNESS This is a 75-year-old female patient of Dr. Kai Knott with past medical history of hypertension, hyperlipidemia, diabetes mellitus type 2. She initially presented to [facility] emergency center on July 22 for generalized weakness and fever and cough for 3 days. She was diagnosed with UTI and pneumonia and discharged on Levaquin for 7 day course. She had: 19 testing at that time which was not back at the time of discharge. Patient returned on July 24 with complaints of nausea and vomiting and was discharged home on Zofran. Patient apparently ran out of Zofran yesterday and presented again to [facility] emergency center with nausea, vomiting and fever. She denies having any cough, shortness of breath or chest pain. She is still having intermittent diarrhea. No abdominal pain. Patient presented to [facility] emergency center, temperature max 100.0, heart rate 69, blood pressure 116/67, pulse ox 94% on room air. This morning pulse ox is 90% on room air. WBC 13.9, sodium 128, potassium 3.7, creatinine 0.63. C-reactive protein 256. Urinalysis cloudy, blood small, WBCs 17, squamous cells 13.Influenza A and B negative on July 29 and July 22. Chest x-ray done yesterday reveals progression of bilateral infiltrates. Patient was admitted to the MedSurg floor, started on IV fluids, Lovenox, dexamethasone, vitamin D, vitamin C, zinc. Consult dated for pulmonary medicine. Patient has history of smoking. Information is limited from the patient due to limited Yoruba. 07/31: Patient does not have any abdominal pain. No nausea no vomiting no diarrhea. She is walking to the bathroom and does not require oxygen. site monitor has been in normal sinus rhythm. She was seen yesterday by phone or medicine and started on Remdesivir. She is on day #2/5 of Remdesivir. Repeat blood work reveals WBC 7.8, hemoglobin 11.4, lymphocytes 0.8. Ferritin improved at 398, LDH improved at 296, C-reactive protein down to 9.2. Afebrile, heart rate 68, blood pressure 126/67 pulse ox 93% on room air. Patient appears to be quite stable and appropriate for discharge. We'll plan for discharge home today if cleared by pulmonary medicine. ASSESSMENT AND PLAN 1. Covid 19 pneumonia. 2. Intractable nausea and vomiting, resolved. 3. Dehydration with hyponatremia. 4. Hypertension. 5. Hyperlipidemia. 6. Diabetes mellitus type 2, uncontrolled with hypoglycemia. DISCHARGE PLAN Home. Impression and plan of care have been directed as dictated by the signing physician. Viviana López nurse practitioner acting as scribe for signing physician. Patient Condition at Discharge: Good Plan - Discharge Summary Discharge Rx Participant: No New Discharge Prescriptions: New Dexamethasone 6 mg PO DAILY #5 tablet Zinc Sulfate [Orazinc] 220 mg PO DAILY cap Pantoprazole [Protonix] 40 mg PO AC-BRKFST #30 tablet. Acetaminophen Tab [Tylenol] 650 mg PO Q6HR PRN tab PRN Reason: Fever And/ Or Pain Ascorbic Acid [Vitamin C] 1,000 mg PO DAILY tab Cholecalciferol [Vitamin D3 (25 Mcg = 1000 Iu)] 2,000 unit PO DAILY tab Ondansetron [Zofran] 4 mg PO Q8HR PRN #20 tab PRN Reason: Nausea Continue glyBURIDE/METFORMIN HCL [Glucovance 5-500 mg] 1 tab PO AC-BID Lovastatin [Mevacor] 20 mg PO HS Lisinopril-Hctz 10-12.5 mg [Zestoretic 10-12.5] 1 tab PO HS Discharge Medication List Lisinopril-Hctz 10-12.5 mg [Zestoretic 10-12.5] 1 tab PO HS 07/24/20 [History] Lovastatin [Mevacor] 20 mg PO HS 07/24/20 [History] glyBURIDE/METFORMIN HCL [Glucovance 5-500 mg] 1 tab PO AC-BID 07/24/20 [History] Acetaminophen Tab [Tylenol] 650 mg PO Q6HR PRN tab 07/31/20 [Rx] Ascorbic Acid [Vitamin C] 1,000 mg PO DAILY tab 11/24/20 [Rx] Cholecalciferol [Vitamin D3 (25 Mcg = 1000 Iu)] 2,000 unit PO DAILY tab 07/31/20 [Rx] Dexamethasone 6 mg PO DAILY #5 tablet 07/31/20 [Rx] Ondansetron [Zofran] 4 mg PO Q8HR PRN #20 tab 07/31/20 [Rx] Pantoprazole [Protonix] 40 mg PO AC-BRKFST #30 tablet.dr 07/31/20 [Rx] Zinc Sulfate [Orazinc] 220 mg PO DAILY cap 07/31/20 [Rx] Follow up Appointment(s)/Referral(s): Kai Knott MD [Primary Care Provider] - 1 Week
[2020-07-31 11:49] LABS: Glucose,Whole Blood 113 mg/dL (75-99)
[2020-07-31] MEDS: SODIUM CHLORIDE 0.9% 1,000 ML IV SCH ×2 (12:10→15:10)
[2020-07-31] MEDS: REMDESIVIR (EUA) 100 MG in SODIUM CHLORIDE 0.9% 250 ML IVPB SCH (15:09)
[2020-07-31] MEDS: ENOXAPARIN 40 MG/0.4 ML SYRINGE SQ SCH (15:10)
[2020-07-31 15:48] LABS: Appearance,Urine Clear (Clear); Bacteria,Urine Rare /hpf; Bilirubin,Urine Negative (Negative); Blood,Urine Negative (Negative); Color,Urine Light Yellow; Glucose,Urine (UA) 2+ (Negative); Ketones,Urine Negative (Negative); Leukocyte Esterase,Urine Small (Negative); Mucus,Urine Rare /hpf; Nitrite,Urine Negative (Negative); Protein,Urine Trace (Negative); RBC,Urine 1 /hpf (0-5); Specific Gravity,Urine 1.012 (1.001-1.035); Squamous Epithelial Cell,Urine <1 /hpf (0-4); Urobilinogen,Urine <2.0 mg/dL (<2.0); WBC,Urine 4 /hpf (0-5)
--- NOTE | 2020-07-31 16:39 | US ---
EXAMINATION TYPE: US pelvic limited DATE OF EXAM: 07/31/2020 COMPARISON: NONE CLINICAL HISTORY: dysuria. Inpatient who doesn't speak Luxembourger. She has a UTI and dysuria, patient has extensive midline scarri ng. She is unable to well hold her bladder and has urgency. Bladder appears wnl as seen. Urinary bladder is sonolucent. There is no evidence of free fluid in the pelvis. Uterus is not definitely seen. There is no sign of a pelvic mass. IMPRESSION: No demonstrated abnormality.
[2020-07-31 17:26] LABS: Glucose,Whole Blood 234 mg/dL (75-99)
--- NOTE | 2020-07-31 18:46 | P.PN ---
Subjective Progress Note Date: 07/31/20 Principal diagnosis: Acute COVID 19 pneumonitis This is a 75-year-old female patient of Dr. Kai Knott, with past medical history of diabetes mellitus, who presented to the emergency department on 07/29/2024 evaluation of continuous nausea, vomiting and diarrhea, and patient also developed a fever. Patient is a positive for COVID 19 1 week ago. She was seen in the emergency department for nausea and vomiting. She received some IV hydration felt improvement, she has also abated a course of Levaquin for a mild pneumonia. Patient is a poor historian related to language barrier, we think her primary language is Nigerian. Most the history was obtained from the chart. Patient was taken Zofran for nausea and vomiting, and felt some improvement last week however she ran out of Zofran and started vomiting again. Patient denied having any cough, shortness of breath or chest pain. She was having intermittent diarrhea, denied any dysuria. Denied any headaches, sore throat, no abdominal pain, just feeling nauseous and crampy. She was febrile on presentation to temp of 100F. Pulse ox was 97% on room air. Chest x-ray showing progression of bilateral infiltrates compared x completed on 07/22/2020. Lab work showed mild leukocytosis, with white blood cell count of 13.9, lymphopenia with the lymphocyte count of 0.6, sodium was 128, potassium 3.7, ch loride was 89, renal profile was unremarkable, plasma lactic acid was mildly elevated at 3.2, LFTs were within normal limits. LDH was 750, CRP was 256, down to 201 on today's labs, urinalysis showed 3+ protein, trace ketones, small amount of blood, increased leukocytes and possibility of urinary tract infection, influenza screen was negative. Patient was given a liter bolus in the emergency department, lactic acid has improved, and she continues on IV hydration with 0.9 normal saline at a rate of 75 ML per hour, she is on prophylactic dose of Lovenox, oral dexamethasone, and we will add Remdesivir to her regimen On 07/31/2020 patient seen in follow-up on esophageal medical surgical floor, she feels she is still short of breath, but appears to be in no acute distress, appears to be breathing comfortably at this time, he remains on room air, pulse ox is 92-93%, vital signs have been stable, she's been afebrile. No cough. No chest discomfort. She is on day 2 of Remdesivir, she remains a prophylactic dose of Lovenox, and Decadron. No acute events overnight, but remains weak overall. Objective - Vital Signs Vital signs: Vital Signs Temp 98.3 F 07/31/20 12:46 Pulse 63 07/31/20 12:46 Resp 17 07/31/20 12:46 BP 144/73 07/31/20 12:46 Pulse Ox 92 L 07/31/20 12:46 Intake & Output 07/30/20 07/31/20 07/31/20 18:59 06:59 18:59 Intake Total 600 300 850 Balance 600 300 850 Intake: Intake, IV Titration 600 850 Amount Remdesivir (Eua) 100 mg 250 In Sodium Chloride 0.9% 250 ml @ 250 mls/hr IVPB DAILY@1400 J[facility] Rx#: [id number] Sodium Chloride 0.9% 1, 600 600 000 ml @ 75 mls/hr IV . [id number] JASWINDER Rx#:[id number] Oral 300 Other: Voiding Method Toilet Toilet # Voids 5 - Exam GENERAL EXAM: Alert, very pleasant, 75-year-old female, on room air, w ith a pulse ox of 94%, comfortable in no apparent distress. HEAD: Normocephalic/atraumatic. EYES: Normal reaction of pupils, equal size. Conjunctiva pink, sclera white. NOSE: Clear with pink turbinates. THROAT: No erythema or exudates. NECK: No masses, no JVD, no thyroid enlargement, no adenopathy. CHEST: No chest wall deformity. Symmetrical expansion. LUNGS: Equal air entry with no crackles, wheeze, rhonchi or dullness. CVS: Regular rate and rhythm, normal S1 and S2, no gallops, no murmurs, no rubs ABDOMEN: Soft, nontender. No hepatosplenomegaly, normal bowel sounds, no guarding or rigidity. EXTREMITIES: No clubbing, no edema, no cyanosis, 2+ pulses and upper and lower extremities. MUSCULOSKELETAL: Muscle strength and tone normal. SPINE: No scoliosis or deformity SKIN: No rashes CENTRAL NERVOUS SYSTEM: Alert and oriented -3. No focal deficits, tone is normal in all 4 extremities. PSYCHIATRIC: Alert and oriented -3. Appropriate affect. Intact judgment and insight. - Labs CBC & Chem 7: 07/31/20 06:19 07/31/20 06:19 Labs: Abnormal Lab Results - Last 24 Hours (Table) 07/30/20 07/30/20 07/31/20 Range/Units 08:24 19:26 06:19 RBC (3.80-5.40) m/uL Hct (34.0-46.0) % Lymphocytes # (1.0-4.8) k/uL BUN/Creatinine Ratio 21.43 H (12.00-20.00) Ratio Glucose 127 H (70-110) mg/dL POC Glucose (mg/dL) 247 H (75-99) mg/dL Calcium 8.4 L (8.7-10.3) mg/dL Ferritin 398.1 H (10.0-291.0) ng/mL Lactate Dehydrogenase 296 H (120-246) U/L C-Reactive Protein 9.2 H (0.0-0.8) mg/dL Total Protein 5.5 L (6.2-8.2) g/dL Albumin 3.20 L (3.80-4.90) g/dL Albumin/Globulin Ratio 1.39 L (1.60-3.17) g/dL Procalcitonin 0.18 H (0.02-0.09) ng/mL Urine Protein (Negative) Urine Glucose (UA) (Negative) Ur Leukocyte Esterase (Negative) Urine Bacteria (None) /hpf Urine Mucus (None) /hpf 07/31/20 07/31/20 07/31/20 Range/Units 06:19 07:05 11:46 RBC 3.68 L (3.80-5.40) m/uL Hct 33.9 L (34.0-46.0) % Lymphocytes # 0.8 L (1.0-4.8) k/uL BUN/Creatinine Ratio (12.00-20.00) Ratio Glucose (70-110) mg/dL POC Glucose (mg/dL) 101 H 113 H (75-99) mg/dL Calcium (8.7-10.3) mg/dL Ferritin (10.0-291.0) ng/mL Lactate Dehydrogenase (120-246) U/L C-Reactive Protein (0.0-0.8) mg/dL Total Protein (6.2-8.2) g/dL Albumin (3.80-4.90) g/dL Albumin/Globulin Ratio (1.60-3.17) g/dL Procalcitonin (0.02-0.09) ng/mL Urine Protein (Negative) Urine Glucose (UA) (Negative) Ur Leukocyte Esterase (Negative) Urine Bacteria (None) /hpf Urine Mucus (None) /hpf 07/31/20 07/31/20 Range/Units 15:39 17:14 RBC (3.80-5.40) m/uL Hct (34.0-46.0) % Lymphocytes # (1.0-4.8) k/uL BUN/Creatinine Ratio (12.00-20.00) Ratio Glucose (70-110) mg/dL POC Glucose (mg/dL) 234 H (75-99) mg/dL Calcium (8.7-10.3) mg/dL Ferritin (10.0-291.0) ng/mL Lactate Dehydrogenase (120-246) U/L C-Reactive Protein (0.0-0.8) mg/dL Total Protein (6.2-8.2) g/dL Albumin (3.80-4.90) g/dL Albumin/Globulin Ratio (1.60-3.17) g/dL Procalcitonin (0.02-0.09) ng/mL Urine Protein Trace H (Negative) Urine Glucose (UA) 2+ H (Negative) Ur Leukocyte Esterase Small H (Negative) Urine Bacteria Rare H (None) /hpf Urine Mucus Rare H (None) /hpf Microbiology - Last 24 Hours (Table) 07/29/20 13:45 Blood Culture - Preliminary Blood No Growth after 48 hours 07/29/20 13:45 Urine Culture - Final Urine,Voided Carolynn albicans Assessment and Plan Plan: Assessment: #1. Acute COVID 19 pneumonitis #2. Nausea, vomiting, diarrhea related to acute COVID 19 infection, improved #3. Hyponatremia, likely hypovolemic of related to protracted nausea vomiting and diarrhea, improved #4. Mild lactic acidosis, improved with IV hydration #5. Possible urinary tract infection #6. Diabetes mellitus type 2 #7. Increased inflammatory markers related to acute COVID 19 infection Plan: Patient remains weak, she still feels short of breath, but appears to be in no acute distress, vital signs have been stable, will continue with the Remdesivir course, today is her second day of treatment, she remains on room air, and acute worsening in her oxygenation pattern, her nausea and vomiting have improved, hyponatremia improved, continue with gentle IV hydration. We'll continue to follow the patient, will continue Remdesivir course. Follow-up chest x-ray in the morning I performed a history & physical examination of the patient and discussed their management with my nurse practitioner, Lila Campbell. I reviewed the nurse practitioner's note and agree with the documented findings and plan of care. Lung sounds are positive for bibasilar crackles. The findings and the impression was discussed with the patient. I attest to the documentation by the nurse practitioner. Time with Patient: Less than 30
[2020-07-31 19:58] LABS: Glucose,Whole Blood 240 mg/dL (75-99)
[2020-07-31] MEDS: ATORVASTATIN 10 MG TAB PO SCH (20:12)
[2020-08-01 06:34] LABS: Basophils % (A) 0 %; Eosinophils % (A) 0 %; HCT 34.2 % (34.0-46.0); HGB 11.4 gm/dL (11.4-16.0); Lymphocytes # (A) 1.5 k/uL (1.0-4.8); Lymphocytes % (A) 13 %; MCH 30.8 pg (25.0-35.0); MCHC 33.4 g/dL (31.0-37.0); MCV 92.3 fL (80.0-100.0); Mean Platelet Volume 6.8; Monocytes # (A) 0.6 k/uL (0-1.0); Monocytes % (A) 5 %; Neutrophils # (A) 9.5 k/uL (1.3-7.7); Neutrophils % (A) 80 %; Platelet Count 423 k/uL (150-450); RBC 3.71 m/uL (3.80-5.40); RDW 11.9 % (11.5-15.5); WBC 11.9 k/uL (3.8-10.6)
[2020-08-01 07:04] LABS: Glucose,Whole Blood 70 mg/dL (75-99)
[2020-08-01] MEDS: INSULIN ASPART (NovoLOG) 100 UNIT/ML VIAL SQ SCH ×2 (07:15→13:06)
[2020-08-01] MEDS: PANTOPRAZOLE 40 MG TABLET PO SCH (08:03)
[2020-08-01] MEDS: ASCORBIC ACID 500 MG TAB PO SCH (08:03)
[2020-08-01] MEDS: ZINC SULFATE 220 MG CAP PO SCH (08:03)
[2020-08-01] MEDS: CHOLECALCIFEROL 1,000 UNIT TAB PO SCH (08:03)
[2020-08-01] MEDS: DEXAMETHASONE SOD PHOSPHATE 10 MG/ML 1 ML VIAL IV SCH (08:03)
[2020-08-01 09:43] LABS: African American GFR (CKD) 104.1 (60.0-200.0); Albumin 3.2 g/dL (3.80-4.90); Albumin/Globulin Ratio 1.52 (1.60-3.17); Anion Gap 9.2 mmol/L (4.00-12.00); BUN/Creat Ratio 23.33 Ratio (12.00-20.00); Calcium 8.4 mg/dL (8.7-10.3); Carbon Dioxide 27.8 mmol/L (21.6-31.8); Globulin 2.1 g/dL (1.6-3.3); Non-African American GFR(CKD) 89.8 (60.0-200.0); Potassium 4.3 mmol/L (3.5-5.5); Total Bilirubin 0.4 mg/dL (0.3-1.2); Total Protein 5.3 g/dL (6.2-8.2)
[2020-08-01 09:48] LABS: C Reactive Protein 5.1 mg/dL (0.0-0.8)
--- NOTE | 2020-08-01 10:37 | P.PN ---
Subjective Progress Note Date: 08/01/20 HISTORY OF PRESENT ILLNESS This is a 75-year-old female patient of Dr. Kai Knott with past medical history of hypertension, hyperlipidemia, diabetes mellitus type 2. She initially presented to [facility] emergency center on July 22 for generalized weakness and fever and cough for 3 days. She was diagnosed with UTI and pneumonia and discharged on Levaquin for 7 day course. She had: 19 testing at that time which was not back at the time of discharge. Patient returned on July 24 with complaints of nausea and vomiting and was discharg ed home on Zofran. Patient apparently ran out of Zofran yesterday and presented again to [facility] emergency center with nausea, vomiting and fever. She denies having any cough, shortness of breath or chest pain. She is still having intermittent diarrhea. No abdominal pain. Patient presented to [facility] emergency center, temperature max 100.0, heart rate 69, blood pressure 116/67, pulse ox 94% on room air. This morning pulse ox is 90% on room air. WBC 13.9, sodium 128, potassium 3.7, creatinine 0.63. C- reactive protein 256. Urinalysis cloudy, blood small, WBCs 17, squamous cells 13.Influenza A and B negative on July 29 and July 22. Chest x-ray done yesterday reveals progression of bilateral infiltrates. Patient was admitted to the MedSurg floor, started on IV fluids, Lovenox, dexamethasone, vitamin D, vitamin C, zinc. Consult dated for pulmonary medicine. Patient has history of smoking. Information is limited from the patient due to limited Frisian. 07/31: Patient does not have any abdominal pain. No nausea no vomiting no olamide rrhea. She is walking to the bathroom and does not require oxygen. 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 She was seen yesterday by phone or medicine and started on Remdesivir. She is on day #2/5 of Remdesivir. Repeat blood work reveals WBC 7.8, hemoglobin 11.4, lymphocytes 0.8. Ferritin improved at 398, LDH improved at 296, C-reactive protein down to 9.2. Afebrile, heart rate 68, blood pressure 126/67 pulse ox 93% on room air. Patient appears to be quite stable and appropriate for discharge. We'll plan for discharge home today if cleared by pulmonary medicine. 08/01: She remains afebrile, heart rate 70, blood pressure 1 3475, pulse ox 91% on room air. She is on day #3/5 of Remdesivir. Patient is complaining of more shortness of breath today. Pelvic ultrasound showed no abnormality. Sputum cultures collected. Blood culture no growth at 48 hours. Urine is positive for Carolynn. D-dimer 1.1, blood sugar 7.0. CBC 11.9, hemoglobin 11.4. Electrolytes and renal function are normal. Blood sugar 82. LDH 333, C- reactive protein 5.1. IV fluids will be discontinued. REVIEW OF SYSTEMS Constitutional: Denies fever, Denies chills, Denies night sweats. No weight change. Denies weakness, denies daytime sleepiness. EENT: No headache. No blurred vision or double vision, no loss of vision. No loss of Hearing, no ringing in the ears, no dizziness. No nasal drainage or congestion. No epistaxis. No sore throat. Lungs: No shortness of breath, cough, no sputum production. No wheezing. Cardiovascular: No chest pain, no lower extremity edema. No palpitations. No paroxysmal nocturnal dyspnea. No orthopnea. No lightheadedness or dizziness. No syncopal episodes. Abdominal: Denies abdominal pain. Denies nausea, Denies vomiting. Denies diarrhea. No constipation. No bloody or tarry stools. Denies loss of appetite. Genitourinary: No dysuria, increased frequency, urgency. Musculoskeletal: No myalgias. No muscle weakness, no gait dysfunction, no frequent falls. Integumentary: No wounds, no lesions. No rash or pruritus. Neurologic: No aphasia. No facial droop. No change in mentation. No head injury. No headache. No paralysis. No paresthesia. Psychiatric: No depression. No anxiety. Endocrine: No abnormal blood sugars. PHYSICAL EXAMINATION Gen: This is a 75-year-old female. She is resting in bed and appears to be comfortable and in no acute distress. No respiratory distress is noted. HEENT: Head is atraumatic, normocephalic. Pupils equal, round. Sclerae is anicteric. NECK: Supple. No JVD. No lymphadenopathy. No thyromegaly. LUNGS: Clear to auscultation. No wheezes or rhonchi. No intercostal retractions. No accessory muscle usage. HEART: Regular rate and rhythm. No murmur. ABDOMEN: Soft. Bowel sounds are present. No masses. No tenderness. EXTREMITIES: No pedal edema. No calf tenderness. NEUROLOGICAL: Patient is awake, alert and oriented x3. Cranial nerves 2 through 12 are grossly intact. ASSESSMENT AND PLAN 1. Covid 19 pneumonia. Continue dexamethasone 6 mg IV daily, Lovenox 40 mg daily, zinc, vitamin C, vitamin D, consult with pulmonary medicine. Repeat chest x-ray, blood culture, sputum culture. Patient is on day #3/5 of Remdes ivir. 2. Intractable nausea and vomiting, resolved. Continue Zofran 4 mg IV every 6 hours as needed, IV fluids discontinued. 3. Dehydration with hyponatremia, resolved. Continue IV fluids. 4. Hypertension. Hold hydrochlorothiazide, resume lisinopril 10 mg daily with parameters. 5. Hyperlipidemia. Continue lovastatin 20 mg at bedtime. 6. Diabetes mellitus type 2, uncontrolled with hypoglycemia. Hold glyburide and metformin. NovoLog scale only for now. Hemoglobin A1c. 7. GI prophylaxis. Protonix. 8. DVT prophylaxis. Lovenox. DISCHARGE PLAN Most likely return home on Thursday after completing Remdesivir. Impression and plan of care have been directed as dictated by the signing physician. Viviana López nurse practitioner acting as scribe for signing physician. Objective - Vital Signs Vital signs: Vital Signs Temp 97.4 F L 08/01/20 05:40 Pulse 70 08/01/20 05:40 Resp 16 08/01/20 05:40 BP 134/75 08/01/20 05:40 Pulse Ox 91 L 08/01/20 05:40 Intake & Output 07/31/20 08/01/20 08/01/20 18:59 06:59 18:59 Intake Total 850 1015 Balance 850 1015 Intake: Intake, IV Titration 850 725 Amount Remdesivir (Eua) 100 mg 250 In Sodium Chloride 0.9% 250 ml @ 250 mls/hr IVPB DAILY@1400 JAS[facility] Rx#: [id number] Sodium Chloride 0.9% 1, 600 725 000 ml @ 75 mls/hr IV . [id number] JASWINDER Rx#:[id number] Oral 290 Other: Voiding Method Toilet # Voids 5 4 # Bowel Movements 0 - Labs CBC & Chem 7: 08/01/20 05:34 08/01/20 05:34 Labs: Abnormal Lab Results - Last 24 Hours (Table) 07/31/20 07/31/20 07/31/20 Range/Units 06:19 06:19 11:46 WBC (3.8-10.6) k/uL RBC (3.80-5.40) m/uL Neutrophils # (1.3-7.7) k/uL D-Dimer (<0.60) mg/L FEU BUN/Creatinine Ratio 21.43 H (12.00-20.00) Ratio Glucose 127 H (70-110) mg/dL POC Glucose (mg/dL) 113 H (75-99) mg/dL Hemoglobin A1c 7.0 H (4.0-6.0) % Calcium 8.4 L (8.7-10.3) mg/dL Ferritin 398.1 H (10.0-291.0) ng/mL Lactate Dehydrogenase 296 H (120-246) U/L C-Reactive Protein 9.2 H (0.0-0.8) mg/dL Total Protein 5.5 L (6.2-8.2) g/dL Albumin 3.20 L (3.80-4.90) g/dL Albumin/Globulin Ratio 1.39 L (1.60-3.17) g/dL Urine Protein (Negative) Urine Glucose (UA) (Negative) Ur Leukocyte Esterase (Negative) Urine Bacteria (None) /hpf Urine Mucus (None) /hpf 07/31/20 07/31/20 07/31/20 Range/Units 15:39 17:14 19:49 WBC (3.8-10.6) k/uL RBC (3.80-5.40) m/uL Neutrophils # (1.3-7.7) k/uL D-Dimer (<0.60) mg/L FEU BUN/Creatinine Ratio (12.00-20.00) Ratio Glucose (70-110) mg/dL POC Glucose (mg/dL) 234 H 240 H (75-99) mg/dL Hemoglobin A1c (4.0-6.0) % Calcium (8.7-10.3) mg/dL Ferritin (10.0-291.0) ng/mL Lactate Dehydrogenase (120-246) U/L C-Reactive Protein (0.0-0.8) mg/dL Total Protein (6.2-8.2) g/dL Albumin (3.80-4.90) g/dL Albumin/Globulin Ratio (1.60-3.17) g/dL Urine Protein Trace H (Negative) Urine Glucose (UA) 2+ H (Negative) Ur Leukocyte Esterase Small H (Negative) Urine Bacteria Rare H (None) /hpf Urine Mucus Rare H (None) /hpf 08/01/20 08/01/20 08/01/20 Range/Units 05:34 05:34 06:59 WBC 11.9 H (3.8-10.6) k/uL RBC 3.71 L (3.80-5.40) m/uL Neutrophils # 9.5 H (1.3-7.7) k/uL D-Dimer 1.10 H (<0.60) mg/L FEU BUN/Creatinine Ratio (12.00-20.00) Ratio Glucose (70-110) mg/dL POC Glucose (mg/dL) 70 L (75-99) mg/dL Hemoglobin A1c (4.0-6.0) % Calcium (8.7-10.3) mg/dL Ferritin (10.0-291.0) ng/mL Lactate Dehydrogenase (120-246) U/L C-Reactive Protein (0.0-0.8) mg/dL Total Protein (6.2-8.2) g/dL Albumin (3.80-4.90) g/dL Albumin/Globulin Ratio (1.60-3.17) g/dL Urine Protein (Negative) Urine Glucose (UA) (Negative) Ur Leukocyte Esterase (Negative) Urine Bacteria (None) /hpf Urine Mucus (None) /hpf Microbiology - Last 24 Hours (Table) 07/31/20 15:39 Urine Culture - Preliminary Urine,Voided 07/29/20 13:45 Blood Culture - Preliminary Blood No Growth after 48 hours
[2020-08-01] MEDS ORDERED: FLUCONAZOLE 150 MG TAB PO SCH (12:15)
[2020-08-01 12:29] LABS: Glucose,Whole Blood 219 mg/dL (75-99)
[2020-08-01] MEDS: SODIUM CHLORIDE 0.9% 1,000 ML IV SCH (12:54)
--- NOTE | 2020-08-01 13:01 | XR ---
EXAMINATION TYPE: XR chest 1V portable DATE OF EXAM: 08/01/2020 CLINICAL HISTORY: COVID 19. TECHNIQUE: Portable frontal view of the chest. COMPARISON: 07/30/2020 chest radiograph FINDINGS: The cardiomediastinal silhouette is within normal limits for size. Diffuse bilateral perip heral bandlike airspace opacities of the lungs are unchanged versus 07/30/2020. No pleural effusion, or pneumothorax seen. IMPRESSION: Unchanged diffuse peripheral airspace opacities versus 07/30/2020, consistent with Covid 19 viral infection.
[2020-08-01] MEDS: REMDESIVIR (EUA) 100 MG in SODIUM CHLORIDE 0.9% 250 ML IVPB SCH (13:05)
[2020-08-01 13:42] VITALS: BP 136/67; PULSE 64; RESP 17; TEMP 97.8
--- NOTE | 2020-08-01 14:33 | P.PN ---
Subjective Progress Note Date: 08/01/20 Principal diagnosis: Acute COVID 19 pneumonitis This is a 75-year-old female patient of Dr. Kai Knott, with past medical history of diabetes mellitus, who presented to the emergency department on 07/29/2024 evaluation of continuous nausea, vomiting and diarrhea, and patient also developed a fever. Patient is a positive for COVID 19 1 week ago. She was seen in the emergency department for nausea and vomiting. She received some IV hydration felt improvement, she has also abated a course of Levaquin for a mild pneumonia. Patient is a poor historian related to language barrier, we think her primary language is Mauritian. Most the history was obtained from the chart. Patient was taken Zofran for nausea and vomiting, and felt some improvement last week however she ran out of Zofran and started vomiting again. Patient denied having any cough, shortness of breath or chest pain. She was having intermittent diarrhea, denied any dysuria. Denied any headaches, sore throat, no abdominal pain, just feeling nauseous and crampy. She was febrile on presentation to temp of 100F. Pulse ox was 97% on room air. Chest x-ray showing progression of bilateral infiltrates compared x completed on 07/22/2020. Lab work showed mild leukocytosis, with white blood cell count of 13.9, lymphopenia with the lymphocyte count of 0.6, sodium was 128, potassium 3.7, ch loride was 89, renal profile was unremarkable, plasma lactic acid was mildly elevated at 3.2, LFTs were within normal limits. LDH was 750, CRP was 256, down to 201 on today's labs, urinalysis showed 3+ protein, trace ketones, small amount of blood, increased leukocytes and possibility of urinary tract infection, influenza screen was negative. Patient was given a liter bolus in the emergency department, lactic acid has improved, and she continues on IV hydration with 0.9 normal saline at a rate of 75 ML per hour, she is on prophylactic dose of Lovenox, oral dexamethasone, and we will add Remdesivir to her regimen On 07/31/2020 patient seen in follow-up on medical surgical floor, she feels she is still short of breath, but appears to be in no acute distress, appears to be breathing comfortably at this time, he remains on room air, pulse ox is 92-93%, vital signs have been stable, she's been afebrile. No cough. No chest discomfort. She is on day 2 of Remdesivir, she remains a prophylactic dose of Lovenox, and Decadron. No acute events overnight, but remains weak overall. On 08/01/2020 patient seen in follow-up on medical surgical floor, denies shortness of breath, she is resting comfortably in bed, breathing comfortably, pulse ox is 94%, vital signs have stable overnight, she's been afebrile, diarrhea has improved, she denies any abdominal pain, she will receive her third dose of Remdesivir, a pulmonary perspective she has been stable, continues on prophylactic dose of Lovenox, vitamin C, zinc supplement, and oral Decadron. Objective - Vital Signs Vital signs: Vital Signs Temp 97.8 F 08/01/20 13:41 Pulse 64 08/01/20 13:41 Resp 17 08/01/20 13:41 BP 136/67 08/01/20 13:41 Pulse Ox 94 L 08/01/20 13:41 Intake & Output 07/31/20 08/01/20 08/01/20 18:59 06:59 18:59 Intake Total 850 1015 Balance 850 1015 Intake: Intake, IV Titration 850 725 Amount Remdesivir (Eua) 100 mg 250 In Sodium Chloride 0.9% 250 ml @ 250 mls/hr IVPB DAILY@1400 JAS[facility]ER Rx#: [id number] Sodium Chloride 0.9% 1, 600 725 000 ml @ 75 mls/hr IV . [id number] JASWINDER Rx#:[id number] Oral 290 Other: Voiding Method Toilet Toilet # Voids 5 4 # Bowel Movements 0 - Exam GENERAL EXAM: Alert, very pleasant, 75-year-old female, on room air, with a pulse ox of 94%, comfortable in no apparent distress. HEAD: Normocephalic/atraumatic. EYES: Normal reaction of pupils, equal size. Conjunctiva pink, sclera white. NOSE: Clear with pink turbinates. THROAT: No erythema or exudates. NECK: No masses, no JVD, no thyroid enlargement, no adenopathy. CHEST: No chest wall deformity. Symmetrical expansion. LUNGS: Equal air entry with no crackles, wheeze, rhonchi or dullness. CVS: Regular rate and rhythm, normal S1 and S2, no gallops, no murmurs, no rubs ABDOMEN: Soft, nontender. No hepatosplenomegaly, normal bowel sounds, no guarding or rigidity. EXTREMITIES: No clubbing, no edema, no cyanosis, 2+ pulses and upper and lower extremities. MUSCULOSKELETAL: Muscle strength and tone normal. SPINE: No scoliosis or deformity SKIN: No rashes CENTRAL NERVOUS SYSTEM: Alert and oriented -3. No focal deficits, tone is normal in all 4 extremities. PSYCHIATRIC: Alert and oriented -3. Appropriate affect. Intact judgment and insight. - Labs CBC & Chem 7: 08/01/20 05:34 08/01/20 05:34 Labs: Abnormal Lab Results - Last 24 Hours (Table) 07/31/20 07/31/20 07/31/20 Range/Units 06:19 15:39 17:14 WBC (3.8-10.6) k/uL RBC (3.80-5.40) m/uL Neutrophils # (1.3-7.7) k/uL D-Dimer (<0.60) mg/L FEU BUN/Creatinine Ratio (12.00-20.00) Ratio POC Glucose (mg/dL) 234 H (75-99) mg/dL Hemoglobin A1c 7.0 H (4.0-6.0) % Calcium (8.7-10.3) mg/dL Lactate Dehydrogenase (120-246) U/L C-Reactive Protein (0.0-0.8) mg/dL Total Protein (6.2-8.2) g/dL Albumin (3.80-4.90) g/dL Albumin/Globulin Ratio (1.60-3.17) g/dL Urine Protein Trace H (Negative) Urine Glucose (UA) 2+ H (Negative) Ur Leukocyte Esterase Small H (Negative) Urine Bacteria Rare H (None) /hpf Urine Mucus Rare H (None) /hpf 07/31/20 08/01/20 08/01/20 Range/Units 19:49 05:34 05:34 WBC 11.9 H (3.8-10.6) k/uL RBC 3.71 L (3.80-5.40) m/uL Neutrophils # 9.5 H (1.3-7.7) k/uL D-Dimer (<0.60) mg/L FEU BUN/Creatinine Ratio 23.33 H (12.00-20.00) Ratio POC Glucose (mg/dL) 240 H (75-99) mg/dL Hemoglobin A1c (4.0-6.0) % Calcium 8.4 L (8.7-10.3) mg/dL Lactate Dehydrogenase (120-246) U/L C-Reactive Protein (0.0-0.8) mg/dL Total Protein 5.3 L (6.2-8.2) g/dL Albumin 3.20 L (3.80-4.90) g/dL Albumin/Globulin Ratio 1.52 L (1.60-3.17) g/dL Urine Protein (Negative) Urine Glucose (UA) (Negative) Ur Leukocyte Esterase (Negative) Urine Bacteria (None) /hpf Urine Mucus (None) /hpf 08/01/20 08/01/20 08/01/20 Range/Units 05:34 05:34 06:59 WBC (3.8-10.6) k/uL RBC (3.80-5.40) m/uL Neutrophils # (1.3-7.7) k/uL D-Dimer 1.10 H (<0.60) mg/L FEU BUN/Creatinine Ratio (12.00-20.00) Ratio POC Glucose (mg/dL) 70 L (75-99) mg/dL Hemoglobin A1c (4.0-6.0) % Calcium (8.7-10.3) mg/dL Lactate Dehydrogenase 333 H (120-246) U/L C-Reactive Protein 5.1 H (0.0-0.8) mg/dL Total Protein (6.2-8.2) g/dL Albumin (3.80-4.90) g/dL Albumin/Globulin Ratio (1.60-3.17) g/dL Urine Protein (Negative) Urine Glucose (UA) (Negative) Ur Leukocyte Esterase (Negative) Urine Bacteria (None) /hpf Urine Mucus (None) /hpf 08/01/20 Range/Units 12:07 WBC (3.8-10.6) k/uL RBC (3.80-5.40) m/uL Neutrophils # (1.3-7.7) k/uL D-Dimer (<0.60) mg/L FEU BUN/Creatinine Ratio (12.00-20.00) Ratio POC Glucose (mg/dL) 219 H (75-99) mg/dL Hemoglobin A1c (4.0-6.0) % Calcium (8.7-10.3) mg/dL Lactate Dehydrogenase (120-246) U/L C-Reactive Protein (0.0-0.8) mg/dL Total Protein (6.2-8.2) g/dL Albumin (3.80-4.90) g/dL Albumin/Globulin Ratio (1.60-3.17) g/dL Urine Protein (Negative) Urine Glucose (UA) (Negative) Ur Leukocyte Esterase (Negative) Urine Bacteria (None) /hpf Urine Mucus (None) /hpf Microbiology - Last 24 Hours (Table) 07/31/20 15:39 Urine Culture - Preliminary Urine,Voided 07/29/20 13:45 Blood Culture - Preliminary Blood No Growth after 48 hours Assessment and Plan Plan: Assessment: #1. Acute COVID 19 pneumonitis #2. Nausea, vomiting, diarrhea related to acute COVID 19 infection, improved #3. Hyponatremia, likely hypovolemic of related to protracted nausea vomiting and diarrhea, improved #4. Mild lactic acidosis, improved with IV hydration #5. Possible urinary tract infection #6. Diabetes mellitus type 2 #7. Increased inflammatory markers related to acute COVID 19 infection Plan: Continue current medical treatment, follow up chest x-ray has been reviewed still showing significant bilateral infiltrates, fairly stable in appearance, clinically patient is any worsening dyspnea, she is breathing comfortably, she has maintained stable O2 saturations, no acute events overnight, she will receive her dose of Remdesivir today, however within the treatment short, as the patient has remained stable, we'll continue on oral Decadron for a total of 10 day course. She stable for discharge home from pulmonary perspective I performed a history & physical examination of the patient and discussed their management with my nurse practitioner, Lila Campbell. I reviewed the nurse practitioner's note and agree with the documented findings and plan of care. Lung sounds are positive for bibasilar crackles. The findings and the impression was discussed with the patient. I attest to the documentation by the nurse practitioner. Time with Patient: Less than 30
== END 2020-08-01 16:39 | disposition home or self-care (01) | DRG 177 ==
LOC: EC 12:46 → 4SSUR 14:52 → 6NMEDSUR 21:51
PROVIDERS: ADMIT Internal Medicine; ATTEND Internal Medicine
DX: U07.1 COVID-19 (principal); J12.89 Other viral pneumonia; B37.49 Other urogenital candidiasis; E87.1 Hypo-osmolality and hyponatremia; E87.2 Acidosis; E11.649 Type 2 diabetes mellitus with hypoglycemia without coma; E78.5 Hyperlipidemia, unspecified; E86.0 Dehydration; E86.1 Hypovolemia; I10 Essential (primary) hypertension; Z79.899 Other long term (current) drug therapy; Z87.891 Personal history of nicotine dependence; R19.7 Diarrhea, unspecified; R11.2 Nausea with vomiting, unspecified; Z87.01 Personal history of pneumonia (recurrent); Z87.440 Personal history of urinary (tract) infections
CPT/HCPCS: 36415; 71045; 71046; 76857; 80053; 81001; 82550; 82728; 83036; 83605; 83615; 83735; 84145; 85025; 85379; 86140; 87040; 87086; 87502; 93005; 96361; 96374; 99285